=== PATIENT | female | born 1930 | race African-American/Black ===

== ENCOUNTER 2016-10-10 20:17 | Observation (INO) | payer OTHER ==
[~2016-10-10] VITALS: Ht 152.4 cm; Wt 77.0 kg
[~2016-10-10 20:17] MED LIST: ALBU6.7H INH; AMIO200 PO; AMLO5 PO; APIX5 PO; FURO1TAB93 PO; LISI-363 PO; MILKSUS5 PO; MOTI25CH PO; MULT-65 PO; OMEP20TA39 PO; PRAV20 PO; VITA200017 PO
[2016-10-10 20:19] VITALS: BP 165/81; PULSE 110; RESP 18; TEMP 98; O2SAT 98
[2016-10-10 20:41] VITALS: BP 191/81; PULSE 97; RESP 16; O2SAT 97
[2016-10-10] MEDS ORDERED: OCUVTAB PO (20:49)
[2016-10-10] MEDS ORDERED: OMEP20TA PO (20:49)
[2016-10-10] MEDS ORDERED: LISI-515 PO (20:49)
[2016-10-10] MEDS ORDERED: AMLO5TAB2 PO (20:49)
[2016-10-10] MEDS ORDERED: FURO40TA PO (20:49)
[2016-10-10] MEDS ORDERED: MECL-62 PO (20:49)
[2016-10-10] MEDS ORDERED: PRAV40TA2 PO (20:49)
[2016-10-10] MEDS ORDERED: CHOL20003 PO (20:49)
[2016-10-10] MEDS ORDERED: APIX5TAB PO (20:49)
[2016-10-10] MEDS ORDERED: SODIUM CHLORIDE 0.9% FLUSH 5 ML FLUSH IVF PRN ×2 (21:00→22:45)
--- NOTE | 2016-10-10 21:29 | RADRPT ---
EXAM DATE/TIME: 10/10/2016 20:44 [place] COMPARISON: CHEST SINGLE AP, October 14, 2014, 5:12. INDICATIONS : Chest pain, shortness of breath and abnormal heart rate. MEDICAL HISTORY : Atrial fibrillation. SURGICAL HISTORY : None. ENCOUNTER: Initial ACUITY: 1 day PAIN SCORE: 3/10 LOCATION: Bilateral chest FINDINGS: A single view of the chest demonstrates the lungs to be symmetrically aerated without evidence of mas s, infiltrate or effusion. Minimal basilar atelectasis. The cardiomediastinal contours are unremarkab le. Osseous structures are intact. CONCLUSION: 1. Minimal basilar atelectasis. Tortuous aorta. Jorge Luis Barker MD on October 10, 2016 at 21:27 Board Certified Radiologist. This report was verified electronically.
[2016-10-10 21:39] VITALS: BP 169/75
--- NOTE | 2016-10-10 21:42 | PD ---
HPI Chief Complaint: Cardiac Complaint Time Seen by Provider: 21:32 Travel History International Travel<30 days: No Contact w/Intl Traveler<30days: No Traveled to known affect area: No History of Present Illness HPI 86 yo female that presents that present to the ed for evaluation of palpitations and chest pain. This started today around 5 pm. Per patient she also feels short of breath. No chest pain now, but she had it when it first started but went away 1 hour later. She has a history of a. fib and sees Dr Martínez. No history of stents or heart surgery. takes Eliquis. no abdominal pain. shortness of breath is moderate. nothing makes symptoms better or worst. Per patient her palpitations seem to improve. She is compliant with meds. No falls, injury or recent travel. no allergies to meds. she has a history of hypertension and high cholesterol. Per patient the chest pain feels new and she 's never had it before. She has had the palpitations and shortness of breath before with no issues. She denies any dizziness or lightheadedness. No headache. No bleeding. What concerned her the most is to the symptoms did not go away. She cannot really tell me when was her last stress test. PFSH Past Medical History Arthritis: Yes ("ALL OVER") Blood Disorders: No Heart Rhythm Problems: Yes (A FIB) Cancer: No Cardiovascular Problems: Yes High Cholesterol: Yes (TAKES MEDS) Chemotherapy: No Chest Pain: Yes Congestive Heart Failure: No Diabetes: No Diverticulitis: Yes Endocrine: No Gastrointestinal Disorders: Yes GERD: No Genitourinary: No Hepatitis: No Hiatal Hernia: Yes Hypertension: Yes Immune Disorder: No Musculoskeletal: Yes Neurologic: No Psychiatric: No Reproductive: No Respiratory: Yes Myocardial Infarction: No Radiation Therapy: No Ulcer: No Past Surgical History Abdominal Surgery: Yes (HYSTERECTOMY) AICD: No Appendectomy: No Arteriovenous Shunt: No Cardiac Surgery: No Cholecystectomy: Yes Coronary Artery Bypass Graft: No Ear Surgery: No Endocrine Surgery: No Eye Surgery: Yes (CATARACTS LEFT EYE 2010) Genitourinary Surgery: No Gynecologic Surgery: Yes (HYSTERECTOMY) Hysterectomy: Yes Insulin Pump: No Joint Replacement: Yes (RIGHT HIP REPLACEMENT 2001) Oral Surgery: No Pacemaker: No Thoracic Surgery: Yes Other Surgery: Yes Social History Alcohol Use: No Tobacco Use: No Substance Use: No Allergies-Medications (Allergen,Severity, Reaction): Coded Allergies: No Known Allergies (Verified , 10/10/16) Reported Meds & Prescriptions Reported Meds & Active Scripts Active Eliquis5 M1 5 Mg Tab 5 Mg PO BID Norvasc (Amlodipine Besylate) 5 Mg Tab 5 Mg PO DAILY Cordarone 200 Mg Tab (Amiodarone HCl) 200 Mg Tab 200 Mg PO DAILY Start taking after the amiodarone 200 mg twice a day has been completed Cordarone 200 Mg Tab (Amiodarone HCl) 200 Mg Tab 200 Mg PO BID Reported D3 (Cholecalciferol) 2,000 Unit Cap Ocuvite (Multiple Vitamins W/ Minerals) 1 Tab 1 Tab PO DAILY Meclizine (Meclizine HCl) 25 Mg Tab 25 Mg PO DIRECTED PRN Furosemide 40 Mg Tab 40 Mg PO DAILY Omeprazole 20 Mg Tab 20 Mg PO DAILY Amlodipine (Amlodipine Besylate) 5 Mg Tab 5 Mg PO DAILY Lisinopril 20 Mg Tab 20 Mg PO BID Pravastatin 40 Mg Tab 40 Mg PO DAILY Eliquis (Apixaban) 5 Mg Tab 5 Mg PO BID Meclizine Hcl (Meclizine HCl) 25 Mg Tab 25 Mg PO BID PRN Lisinopril 20 mg (Lisinopril) 20 Mg Tab 1 Tab PO DAILY Furosemide 40 Mg Tab 40 Mg PO DAILY Multi-Vitamin Daily (Multivitamins) Daily Tab 1 Tab PO DAILY Vitamin D3 Super Strength (Cholecalciferol) 2,000 Unit Tab 2,000 Unit PO DAILY Hm Omeprazole (Omeprazole) 20 Mg Tab 20 Mg PO DAILY Pravastatin Sodium 20 Mg Tab 2 Tab PO HS Milk Of Magnesi1 30 Ml Susp 0 PO UNKNOWN DOSE Proventil Hfa (Albuterol Sulfate) 6.7 Gm Aero 0 INH UNKNOWN DOSE Review of Systems General / Constitutional: No: Fever, Chills, Weight Gain, Weight Loss, Other Eyes: No: Diploplia, Blurred Vision, Photophobia, Drainage, Redness, Foreign Body Sensation, Pain, Tearing, Blind Spots, Visual changes, Blindness, Other HENT: No: Headaches, Vertigo, Lightheadedness, Sore Throat, Rhinitis, Rhinorrhea, Congestion, Nosebleed, Neck Stiffness, Neck Pain, Masses, Gingival Bleeding, Dental Difficulties, Ear Discharge, Earache, Other Cardiovascular: Positive: Chest Pain or Discomfort, Palpitations, Irregular Rhythm, Tachycardia, No: Diaphoresis, Syncope, Dyspnea on exertion, Varicosities, Edema, Cyanosis, Varicosities, Phlebitis, Claudication, Other Respiratory: Positive: Shortness of Breath, No: Cough, Wheezing, Sneezing, Orthopnea, Hemoptysis, Stridor, Night Sweats, Pleuritic Pain, Other Gastrointestinal: No: Nausea, Vomiting, Diarrhea, Abdominal Pain, Hematemesis, Hematochezia, Constipation, Changes in Bowel Habits, Indigestion, Dysphagia, Loss of Appetite, Other Genitourinary: No: Urgency, Frequency, Dysuria, Nocturia, Hematuria, Decreased Urinary Output, Oliguria, Hesitancy, Dribbling, Incontinence, Pelvic Pain, Flank Pain, Dyspareunia, Discharge, Dysmenorrhea, Menorrhagia, Metorrhagia, Vaginal Bleeding, Other Musculoskeletal: No: Myalgias, Arthralgias, Limited ROM, Weakness, Cramping, Edema, Pain, Atrophy, Other Skin: No Rash, No Itching, No Dryness, No Lumps, No Hives, No Change in Pigmentation, No Change in nails, No Alopecia, No Lesions, No Breast Lumps, No Breast Tenderness, No Breast Swelling, No Other Neurologic: No: Weakness, Dizziness, Syncope, Focal Abnormalities, Coordination Problem, Tremor, Ataxia, Headache, Change in Mentation, Slurred Speech, Paresthesia, Incontinence, Seizures, Sensory Disturbance, Other Psychiatric: No: Anxiety, Depression, Suicidal Ideations, Disorder of Thought, Mood Disorder, Substance Abuse, Homicidal Ideation, Other Endocrine: No: Heat Intolerance, Cold Intolerance, Polyuria, Polydipsia, Other Hematologic/Lymphatic: No: Easy Bruising, Lymph Node Enlargement, Other Physical Exam Narrative GENERAL: SKIN: Warm and dry. HEAD: Atraumatic. Normocephalic. EYES: Pupils equal and round. No scleral icterus. No injection or drainage. ENT: No nasal bleeding or discharge. Mucous membranes pink and moist. Tongue is midline. no uvula deviation. NECK: Trachea midline. No JVD. CARDIOVASCULAR: Regular rate and rhythm. No murmurs, S3, S4 RESPIRATORY: No accessory muscle use. Clear to auscultation. Breath sounds equal bilaterally. GASTROINTESTINAL: Abdomen soft, non-tender, nondistended. Hepatic and splenic margins not palpable. MUSCULOSKELETAL: Extremities without clubbing, cyanosis, or edema. No obvious deformities. Full ROM of the upper and lower extremities bilaterally. 2+ pulses bilaterally. NEUROLOGICAL: Awake and alert. No obvious cranial nerve deficits. Motor grossly within normal limits. Five out of 5 muscle strength in the arms and legs. Normal speech. PSYCHIATRIC: Appropriate mood and affect; insight and judgment normal. Data Data Last Documented VS Vital Signs Date Time Temp Pulse Resp B/P Pulse Ox O2 Delivery O2 Flow Rate FiO2 10/10/16 21:40 98 Room Air 10/10/16 21:39 169/75 10/10/16 20:41 97 16 10/10/16 20:19 98.0 Orders Electrocardiogram (10/10/16 20:46) Basic Metabolic Panel (Bmp) (10/10/16 20:46) Ckmb (Isoenzyme) Profile (10/10/16 20:46) Complete Blood Count With Diff (10/10/16 20:46) Magnesium (Mg) (10/10/16 20:46) Prothrombin Time / Inr (Pt) (10/10/16 20:46) Act Partial Throm Time (Ptt) (10/10/16 20:46) Troponin I (10/10/16 20:46) Chest, Single Ap (10/10/16 20:46) Ecg Monitoring (10/10/16 20:46) Bilateral Bp Monitoring (10/10/16 20:46) Iv Access Insert/Monitor (10/10/16 20:46) Oximetry (10/10/16 20:46) Oxygen Administration (10/10/16 20:46) Sodium Chloride 0.9% Flush (Ns Flush) (10/10/16 21:00) CKMB (10/10/16 21:20) CKMB% (10/10/16 21:20) Admit Order (Ed Use Only) (10/10/16 22:39) Activity Bed Rest With Brp (10/10/16 22:39) Vital Signs (Adult) Q4H (10/10/16 22:39) Cardiac Rhythm .As Directed (10/10/16 22:39) ^ Notify Dr: Other .PRN (10/10/16 22:39) ^ Notify Dr. Parameters (10/10/16 22:39) Resp Oxygen Nasal Cannula (10/10/16 ) Ckmb (Isoenzyme) Profile (10/11/16 00:20) Ckmb (Isoenzyme) Profile (10/11/16 03:20) Troponin I (10/11/16 00:20) Troponin I (10/11/16 03:20) Electrocardiogram (10/11/16 00:20) Electrocardiogram (10/11/16 03:20) ^ Obtain (10/10/16 22:39) Sodium Chloride 0.9% Flush (Ns Flush) (10/10/16 22:45) Sodium Chloride 0.9% Flush (Ns Flush) (10/11/16 09:00) Acetaminophen (Tylenol) (10/10/16 22:45) Acetamin-Hydrocod 325-7.5 Mg ([place] 7.5 (10/10/16 22:45) [place]eter Operator / Telemetry ONOFRE.Q8H (10/10/16 22:39) Labs Laboratory Tests Test 10/10/16 21:20 White Blood Count 6.3 TH/MM3 Red Blood Count 4.05 MIL/MM3 Hemoglobin 12.4 GM/DL Hematocrit 37.2 % Mean Corpuscular Volume 91.6 FL Mean Corpuscular Hemoglobin 30.6 PG Mean Corpuscular Hemoglobin 33.4 % Concent Red Cell Distribution Width 14.4 % Platelet Count 315 TH/MM3 Mean Platelet Volume 7.1 FL Neutrophils (%) (Auto) 40.7 % Lymphocytes (%) (Auto) 44.9 % Monocytes (%) (Auto) 8.4 % Eosinophils (%) (Auto) 5.1 % Basophils (%) (Auto) 0.9 % Neutrophils # (Auto) 2.6 TH/MM3 Lymphocytes # (Auto) 2.8 TH/MM3 Monocytes # (Auto) 0.5 TH/MM3 Eosinophils # (Auto) 0.3 TH/MM3 Basophils # (Auto) 0.1 TH/MM3 CBC Comment DIFF FINAL Differential Comment Prothrombin Time 11.7 SEC Prothromb Time International 1.1 RATIO Ratio Activated Partial 27.3 SEC Thromboplast Time Sodium Level 142 MEQ/L Potassium Level 3.6 MEQ/L Chloride Level 108 MEQ/L Carbon Dioxide Level 27.8 MEQ/L Anion Gap 6 MEQ/L Blood Urea Nitrogen 20 MG/DL Creatinine 0.82 MG/DL Estimat Glomerular Filtration 80 ML/MIN Rate Random Glucose 104 MG/DL Calcium Level 8.7 MG/DL Magnesium Level 2.3 MG/DL Total Creatine Kinase 102 U/L Creatine Kinase MB 1.2 NG/ML Troponin I LESS THAN 0.02 NG/ML MDM Medical Decision Making Medical Screen Exam Complete: Yes Emergency Medical Condition: Yes Medical Record Reviewed: Yes Interpretation(s) CBC & BMP Diagram 10/10/16 21:20 EKG shows sinus rhythm with no sign of acute arrythmia or ischemia. troponin and CKMB negative Last Impressions Chest X-Ray 10/10/162045 Signed Impressions: Service Date/Time: Monday, October 10, 2016 20:44 - CONCLUSION: 1. Minimal basilar atelectasis. Tortuous aorta. Jorge Luis Barker MD Differential Diagnosis chest pain vs ACS vs a. fib vs atypical chest pain vs pneumonia vs SOB Narrative Course 86-year-old female that presents to the ED for evaluation of chest pain and palpitations. Patient was properly examined and was found to have signs and symptoms consistent with appears to be resolved A. fib. My initial examination patient is having sinus rhythm. Her heart rate here is already in the 70s and 80s with no sign of atrial fibrillation. Patient chest pain has resolved. Patient does feel somewhat short of breath but feels improved. Labs and imaging were done to any sign of acute disease. Labs and imaging were essentially unremarkable. Troponin was negative. Chest x-ray was negative. Patient does have risk factors including high cholesterol and hypertension as well as age. Case was discussed in my attending who evaluated the patient and recommends admission to the chest pain center. This was discussed with the patient who agrees to admission. Patient was admitted to the chest pain center. Diagnosis Primary Impression: Chest pain in adult Admitting Information Admitting Physician Requests: Observation Reginald Robledo Oct 10, 2016 21:42
[2016-10-10 21:52] LABS: AUTOMATED NEUTROPHIL # 2.6 TH/MM3 (1.8-7.7); BASOPHIL # 0.1 TH/MM3 (0-0.2); BASOPHIL % 0.9 % (0.0-2.0); EOSINOPHIL # 0.3 TH/MM3 (0-0.4); EOSINOPHIL % 5.1 % (0.0-4.0); HEMATOCRIT 37.2 % (35.0-46.0); HEMO FLAGS DIFF FINAL; LYMPH % 44.9 % (9.0-44.0); LYMPHOCYTE # 2.8 TH/MM3 (1.0-4.8); MEAN CELL VOLUME 91.6 FL (80.0-100.0); MEAN CORPUSCULAR HEMOGLOBIN 30.6 PG (27.0-34.0); MEAN CORPUSCULAR HGB CONC 33.4 % (32.0-36.0); MONO % 8.4 % (0.0-8.0); NEUT % 40.7 % (16.0-70.0); PLATELET COUNT 315 TH/MM3 (150-450); RED BLOOD COUNT 4.05 MIL/MM3 (4.00-5.30); RED CELL DISTRIBUTION WIDTH 14.4 % (11.6-17.2); WHITE BLOOD COUNT 6.3 TH/MM3 (4.0-11.0)
[2016-10-10 22:02] LABS: APTT (PATIENT) 27.3 SEC (24.3-30.1); INTERNATIONAL NORMALIZED RATIO 1.1 RATIO; PROTHROMBIN TIME - PATIENT 11.7 SEC (9.8-11.6)
[2016-10-10 22:12] LABS: ANION GAP 6 MEQ/L (5-15); BICARBONATE 27.8 MEQ/L (21.0-32.0); BLOOD UREA NITROGEN 20 MG/DL (7-18); CHLORIDE 108 MEQ/L (98-107); GLOMERULAR FILTRATION RATE 80 ML/MIN (>89); MAGNESIUM 2.3 MG/DL (1.5-2.5); POTASSIUM 3.6 MEQ/L (3.5-5.1); SODIUM (NA) 142 MEQ/L (136-145)
[2016-10-10 22:16] LABS: CREATINE KINASE 102 U/L (26-192)
[2016-10-10 22:28] LABS: CKMB 1.2 NG/ML (0.5-3.6)
[2016-10-10] MEDS ORDERED: ACETAMINOPHEN/HYDROcodone 325 MG/7.5 MG TAB PO PRN (22:45)
[2016-10-10] MEDS ORDERED: ACETAMINOPHEN 500 MG CPLT PO PRN (22:45)
--- NOTE | 2016-10-10 22:54 | PD ---
Physical Exam Narrative General: The patient is a well-developed well-nourished female in no acute distress. Head and Neck exam: Head is normocephalic atraumatic. Eyes: Pupils are equal round and reactive to light. Nose: Midline septum with pink mucous membranes Mouth: Dentition unremarkable. Moist mucus membranes. Posterior oropharynx is not erythematous. No tonsillar hypertrophy. Uvula midline. Airway patent. Neck: No palpable lymphadenopathy. No nuchal rigidity. No thyromegaly. Cardiovascular: Regular rate and rhythm without murmurs, gallops, or rubs. Lungs: Clear to auscultation bilaterally. No wheezes, rhonchi, or rales. Abdomen: Soft, without tenderness to palpation in all 4 quadrants of the abdomen. No guarding, rebound, or rigidity. Normal bowel sounds are audible. Extremities: No clubbing, cyanosis, or edema. 2+ pulses in bilateral upper extremities. Neurologic Exam: Grossly nonfocal. Skin Exam: No rash noted. Intact skin that is warm and dry. Data Data Last Documented VS Vital Signs Date Time Temp Pulse Resp B/P Pulse Ox O2 Delivery O2 Flow Rate FiO2 10/10/16 21:40 98 Room Air 10/10/16 21:39 169/75 10/10/16 20:41 97 16 10/10/16 20:19 98.0 Orders Electrocardiogram (10/10/16 20:46) Basic Metabolic Panel (Bmp) (10/10/16 20:46) Ckmb (Isoenzyme) Profile (10/10/16 20:46) Complete Blood Count With Diff (10/10/16 20:46) Magnesium (Mg) (10/10/16 20:46) Prothrombin Time / Inr (Pt) (10/10/16 20:46) Act Partial Throm Time (Ptt) (10/10/16 20:46) Troponin I (10/10/16 20:46) Chest, Single Ap (10/10/16 20:46) Ecg Monitoring (10/10/16 20:46) Bilateral Bp Monitoring (10/10/16 20:46) Iv Access Insert/Monitor (10/10/16 20:46) Oximetry (10/10/16 20:46) Oxygen Administration (10/10/16 20:46) Sodium Chloride 0.9% Flush (Ns Flush) (10/10/16 21:00) CKMB (10/10/16 21:20) CKMB% (10/10/16 21:20) Admit Order (Ed Use Only) (10/10/16 22:39) Activity Bed Rest With Brp (10/10/16 22:39) Vital Signs (Adult) Q4H (10/10/16 22:39) Cardiac Rhythm .As Directed (10/10/16 22:39) ^ Notify Dr: Other .PRN (10/10/16 22:39) ^ Notify Dr. Parameters (10/10/16 22:39) Resp Oxygen Nasal Cannula (10/10/16 ) Ckmb (Isoenzyme) Profile (10/11/16 00:20) Ckmb (Isoenzyme) Profile (10/11/16 03:20) Troponin I (10/11/16 00:20) Troponin I (10/11/16 03:20) Electrocardiogram (10/11/16 00:20) Electrocardiogram (10/11/16 03:20) ^ Obtain (10/10/16 22:39) Sodium Chloride 0.9% Flush (Ns Flush) (10/10/16 22:45) Sodium Chloride 0.9% Flush (Ns Flush) (10/11/16 09:00) Acetaminophen (Tylenol) (10/10/16 22:45) Acetamin-Hydrocod 325-7.5 Mg ([place] 7.5 (10/10/16 22:45) Street Supervisor / Telemetry ONOFRE.Q8H (10/10/16 22:39) Labs Laboratory Tests Test 10/10/16 21:20 White Blood Count 6.3 TH/MM3 Red Blood Count 4.05 MIL/MM3 Hemoglobin 12.4 GM/DL Hematocrit 37.2 % Mean Corpuscular Volume 91.6 FL Mean Corpuscular Hemoglobin 30.6 PG Mean Corpuscular Hemoglobin 33.4 % Concent Red Cell Distribution Width 14.4 % Platelet Count 315 TH/MM3 Mean Platelet Volume 7.1 FL Neutrophils (%) (Auto) 40.7 % Lymphocytes (%) (Auto) 44.9 % Monocytes (%) (Auto) 8.4 % Eosinophils (%) (Auto) 5.1 % Basophils (%) (Auto) 0.9 % Neutrophils # (Auto) 2.6 TH/MM3 Lymphocytes # (Auto) 2.8 TH/MM3 Monocytes # (Auto) 0.5 TH/MM3 Eosinophils # (Auto) 0.3 TH/MM3 Basophils # (Auto) 0.1 TH/MM3 CBC Comment DIFF FINAL Differential Comment Prothrombin Time 11.7 SEC Prothromb Time International 1.1 RATIO Ratio Activated Partial 27.3 SEC Thromboplast Time Sodium Level 142 MEQ/L Potassium Level 3.6 MEQ/L Chloride Level 108 MEQ/L Carbon Dioxide Level 27.8 MEQ/L Anion Gap 6 MEQ/L Blood Urea Nitrogen 20 MG/DL Creatinine 0.82 MG/DL Estimat Glomerular Filtration 80 ML/MIN Rate Random Glucose 104 MG/DL Calcium Level 8.7 MG/DL Magnesium Level 2.3 MG/DL Total Creatine Kinase 102 U/L Creatine Kinase MB 1.2 NG/ML Troponin I LESS THAN 0.02 NG/ML [facility] Medical Record Reviewed: Yes Supervised Visit with TIFFANIE: Yes Interpretation(s) Last Impressions Chest X-Ray 10/10/162045 Signed Impressions: Service Date/Time: Monday, October 10, 2016 20:44 - CONCLUSION: 1. Minimal basilar atelectasis. Tortuous aorta. Jorge Luis Barker MD Laboratory Tests Test 10/10/16 21:20 Lymphocytes (%) (Auto) 44.9 % (9.0-44.0) Monocytes (%) (Auto) 8.4 % (0.0-8.0) Eosinophils (%) (Auto) 5.1 % (0.0-4.0) Prothrombin Time 11.7 SEC (9.8-11.6) Chloride Level 108 MEQ/L (98-107) Blood Urea Nitrogen 20 MG/DL (7-18) Estimat Glomerular Filtration 80 ML/MIN (>89) Rate Troponin I LESS THAN 0.02 NG/ML (0.02-0.05) Narrative Course I, Dr. Clark, have reviewed the advance practice practitioner's documentation and am in agreement, met with the patient face to face, made the diagnosis, and the medical decision making was done by me. The patient was initially seen by George, the physician pastoral assistant. Please see his complete history and physical. *My assessment and Findings: The patient is an 86-year-old female who presents to [facility] emergency Department with a history of shortness of breath and palpitations that began earlier today. She reports that she also had an episode of central chest pain that resolved on its own. She denies ever having chest pain like this previously. She reports that she does have a history of atrial fibrillation and is anticoagulated on Eliquis. The patient's examination was unremarkable, the patient reports that her symptoms have improved and she is resting comfortably. The patient's laboratory studies were remarkable for a white count of 6.3, hemoglobin 12.4, platelets 3:15 with 44.9 lymphocytes, BNP remarkable for chloride of 108, BUN 20, GFR of 80, CPK 102, troponin I less than 0.02, PT 11.7, INR 1.1, PTT 27.3, chest x-ray shows a tortuous aorta, minimal Basilar atelectasis. No other acute abnormality. The patient was agreeable with the plan to proceed with admission to the chest pain center for rule out serial cardiac enzyme protocol and consideration of stress testing. The patients results were discussed with the patient, including the plan of care. I explained that further testing and/ or monitoring is indicated based on the patients history, examination, and/ or laboratory findings. Therefore, I recommended admission for additional evaluation. The patient expressed understanding and was agreeable with this plan. The patient was admitted to the hospital in stable condition and sent to a bed under the care of chest pain center. Diagnosis Primary Impression: Chest pain in adult Additional Impression: History of atrial fibrillation Admitting Information Admitting Physician Requests: Shelly Salazar MD Oct 10, 2016 22:53
[2016-10-11 01:22] LABS: CREATINE KINASE 90 U/L (26-192)
[2016-10-11 01:30] VITALS: BP 159/69; PULSE 71; RESP 16; O2SAT 98
[2016-10-11 04:09] VITALS: PULSE 70
[2016-10-11 04:53] LABS: CREATINE KINASE 97 U/L (26-192)
[2016-10-11 08:00] VITALS: BP 180/69; PULSE 72; PULSE 74; RESP 18; TEMP 96.5; O2SAT 98
[2016-10-11] MEDS ORDERED: SODIUM CHLORIDE 0.9% FLUSH 5 ML FLUSH IVF SCH (09:00)
[2016-10-11] MEDS ORDERED: METO50TA11 PO (10:07)
[2016-10-11] MEDS ORDERED: REGADENOSON INJ 0.4 MG/5 ML SYR ONE (10:14)
--- NOTE | 2016-10-11 10:18 | HHI.HP ---
[facility] Primary Care Physician Ana Diggs MD Chief Complaint Chest pain and palpitations History of Present Illness This is a 86-year-old female that presents to the ED complaining of having palpitations that began yesterday afternoon around 1:30. She states that it felt similar to her A. fib. He has had paroxysmal atrial fibrillation for many years. She also states that she developed a sharp left-sided chest discomfort that lasted less than 2 minutes while she is on her way to the ER to evaluate her palpitations she states that she really has not had sensation since being in the hospital. He has been in sinus rhythm since being in the hospital when looking at the telemetry. Denies recent illness. Denies fevers or chills. Upon reviewing records, patient had a nonischemic Lexiscan September 2014. She states that she follows Dr. Martínez. Review of Systems General: Patient denies fevers, chills recent, and recent travel HEENT: Patient denies headache, sore throat, difficulty swallowing. Cardiovascular: Has the chest discomfort as mentioned above. Has the sensation of heart beating rapidly and irregularly. No syncope. No diaphoresis. Respiratory: Denies shortness of breath or inspirational chest discomfort. Denies coughing wheezing or hemoptysis. GI: Patient denies nausea, vomiting, diarrhea, abdominal pain, bloody stools. Musculoskeletal: Patient denies joint pain or edema. Denies calf pain or edema. Neurovascular: Patient denies numbness, tingling, weakness in extremities. Denies headache. Endocrine: Denies polyuria and polydipsia. Hematologic: Denies easy bruising. Skin: Denies rash or itching. Past Family Social History Allergies: Coded Allergies: No Known Allergies (Verified , 10/10/16) Past Medical History Paroxysmal atrial ablation, hypertension, hyperlipidemia, and rheumatoid arthritis. Denies diabetes and known coronary artery disease. Past Surgical History Hysterectomy, right hip replacement, cholecystectomy, cataracts. Reported Medications Reported Meds & Active Scripts Active Reported Metoprolol Succinate ER 24 HR (Metoprolol Succinate) 50 Mg Tab 25 Mg PO DAILY D3 (Cholecalciferol) 2,000 Unit Cap 2,000 Units PO DAILY Ocuvite (Multiple Vitamins W/ Minerals) 1 Tab 1 Tab PO DAILY Meclizine (Meclizine HCl) 25 Mg Tab 25 Mg PO DIRECTED PRN Furosemide 40 Mg Tab 40 Mg PO DAILY Omeprazole 20 Mg Tab 20 Mg PO DAILY Amlodipine (Amlodipine Besylate) 5 Mg Tab 5 Mg PO DAILY Lisinopril 20 Mg Tab 20 Mg PO BID Pravastatin 40 Mg Tab 40 Mg PO DAILY Eliquis (Apixaban) 5 Mg Tab 5 Mg PO BID Active Ordered Medications Current Medications Medications (Trade) Dose Ordered Sig/Sanjuanita Route Start Time Stop Time Status Last Admin (NS Flush) 2 ml UNSCH PRN IVF 10/10/16 21:00 (NS Flush) 2 ml UNSCH PRN IVF 10/10/16 22:45 (NS Flush) 2 ml BID IVF 10/11/16 09:00 (Tylenol) 500 mg Q4H PRN PO 10/10/16 22:45 ([place] 7.5-325 Mg) 1 tab Q4H PRN PO 10/10/16 22:45 Family History Denies knowledge of family history of CAD. Social History Patient does not smoke, drink alcohol, or use illicit drugs. Physical Exam Vital Signs Vital Signs Date Time Temp Pulse Resp B/P Pulse Ox O2 Delivery O2 Flow Rate FiO2 10/11/16 08:00 96.5 72 18 180/69 98 10/11/16 04:09 70 10/11/16 01:30 71 16 159/69 98 10/10/16 21:40 98 Room Air 10/10/16 21:39 169/75 10/10/16 20:41 97 16 191/81 97 Room Air 10/10/16 20:19 98.0 110 18 165/81 98 Room Air Physical Exam GENERAL: This is a well-nourished, well-developed patient, in no apparent distress. Patient speaks in clear complete sentences. Patient is pleasant. HEENT: Head is atraumatic and normocephalic. Neck is supple without lymphadenopathy and trachea is midline. No JVD or carotid bruits. CARDIOVASCULAR: Regular rate and rhythm without murmurs, gallops, or rubs. RESPIRATORY: Clear to auscultation. Breath sounds equal bilaterally. No wheezes , rales, or rhonchi. Chest wall is nontender. No use of accessory muscles. GASTROINTESTINAL: Abdomen is nontender, nondistended. Abdomen soft. No obvious pulsatile mass or bruit. No CVA tenderness. Strong femoral pulses bilaterally. Normal bowel sounds in all quadrants. MUSCULOSKELETAL: Patient is moving upper and lower extremities freely. No calf tenderness or edema, no Homans sign. Strong pulses in upper and lower extremities. NEUROLOGICAL: Patient is alert and oriented. Cranial nerves 2-12 are grossly intact. No focal deficits and speech is clear. SKIN: No rash and turgor is normal. Laboratory Laboratory Tests Test 10/10/16 10/11/16 10/11/16 21:20 00:20 03:59 White Blood Count 6.3 Red Blood Count 4.05 Hemoglobin 12.4 Hematocrit 37.2 Mean Corpuscular Volume 91.6 Mean Corpuscular Hemoglobin 30.6 Mean Corpuscular Hemoglobin 33.4 Concent Red Cell Distribution Width 14.4 Platelet Count 315 Mean Platelet Volume 7.1 Neutrophils (%) (Auto) 40.7 Lymphocytes (%) (Auto) 44.9 Monocytes (%) (Auto) 8.4 Eosinophils (%) (Auto) 5.1 Basophils (%) (Auto) 0.9 Neutrophils # (Auto) 2.6 Lymphocytes # (Auto) 2.8 Monocytes # (Auto) 0.5 Eosinophils # (Auto) 0.3 Basophils # (Auto) 0.1 CBC Comment DIFF FINAL Differential Comment Prothrombin Time 11.7 Prothromb Time International 1.1 Ratio Activated Partial 27.3 Thromboplast Time Sodium Level 142 Potassium Level 3.6 Chloride Level 108 Carbon Dioxide Level 27.8 Anion Gap 6 Blood Urea Nitrogen 20 Creatinine 0.82 Estimat Glomerular Filtration 80 Rate Random Glucose 104 Calcium Level 8.7 Magnesium Level 2.3 Total Creatine Kinase 102 90 97 Creatine Kinase MB 1.2 Troponin I LESS THAN 0.02 LESS THAN 0.02 LESS THAN 0.02 Result Diagram: 10/10/16211910/10/162119 Imaging Last Impressions Chest X-Ray 10/10/162045 Signed Impressions: Service Date/Time: Monday, October 10, 2016 20:44 - CONCLUSION: 1. Minimal basilar atelectasis. Tortuous aorta. Jorge Luis Barker MD Course EKG is sinus rhythm without significant ST segment depression or elevation. Assessment and Plan Assessment and Plan * Chest pain: Patient's discomfort is atypical. She however has a sensation of heart beating irregularly and thought she was in atrial for ablation. She has history of paroxysmal atrial ablation. He has been seen by Dr. Willie Hernandez of cardiology and the chest pain center. Patient had serial EKGs and cardiac enzymes and has ruled out. I discussed this patient with Dr. Martínez. 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 * Paroxysmal atrial ablation: Will continue to have patient monitor on telemetry. She has been sinus rhythm since being in the hospital. Continue her current medications. * Hypertension: Continue current medication. * Hyperlipidemia: Continue current medications. Patient is stable at this time. She is agreeable to this plan. Miles Little Oct 11, 2016 10:18
[2016-10-11] MEDS ORDERED: FUROSEMIDE 40 MG TAB PO SCH (10:30)
[2016-10-11] MEDS ORDERED: PANTOPRAZOLE SOD 20 MG DELAYED RELEASE TAB PO SCH (10:30)
[2016-10-11] MEDS ORDERED: PRAVASTATIN SOD 40 MG TAB PO SCH (10:30)
[2016-10-11] MEDS ORDERED: METOPROLOL SUCCINATE 25 MG EXTENDED RELEASE TAB PO SCH (10:30)
[2016-10-11] MEDS ORDERED: APIXABAN 5 MG TABLET PO SCH (10:30)
[2016-10-11] MEDS ORDERED: amLODIPine BESYLATE 5 MG TAB PO SCH (10:30)
[2016-10-11] MEDS ORDERED: LISINOPRIL 20 MG TAB PO SCH (10:30)
[2016-10-11] MEDS ORDERED: MECLIZINE HCL 25 MG TAB PO PRN (10:30)
--- NOTE | 2016-10-11 11:34 | RADRPT ---
EXAM DATE/TIME: 10/11/2016 09:38 [facility] COMPARISON: MYOCARDIAL PERF PHARM SPECT, GATED W/EF, October 14, 2014, 13:09. INDICATIONS : Chest pain with palpitations for 1 day. Angina. Atrial fibrillation. DOSE: 25.8 mCi Tc99m Myoview at stress. 8.6 mCi Tc99m Myoview at rest. 0.4 mg Lexiscan STRESS SYMPTOMS: None. EJECTION FRACTION: > 70% MEDICAL HISTORY : Hypertension. Hypercholesterolemia. SURGICAL HISTORY : Hysterectomy. Inguinal hernia repair. ENCOUNTER: Initial ACUITY: 1 day PAIN SCALE: 3/10 LOCATION: Bilateral chest TECHNIQUE: The patient underwent pharmacologic stress with infusion of prescribed dose. Continuous ECG tracing was monitored during stress. Gated SPECT imaging was performed after stress and conventional SPECT i maging was performed at rest. The examination was performed on a SPECT/CT scanner, both attenuation and non-corrected datasets were reviewed. FINDINGS: DISTRIBUTION: The maximum perfused segment at stress is in the anterior wall. PERFUSION STUDY: The pattern of perfusion at stress is within normal limits. GATED STUDY: There is intact wall motion and thickening without hypokinetic or dyskinetic segments. CONCLUSION: 1. No fixed or reversible wall defects to suggest ischemia or infarction. 2. Normal wall motion and calculated ejection fraction. RISK CATEGORY: Low (<1% Annual Mortality Rate) Justin Muller MD on October 11, 2016 at 11:31 Board Certified Radiologist. This report was verified electronically.
[2016-10-11 12:45] VITALS: BP 165/84; PULSE 92; RESP 18; O2SAT 96
--- NOTE | 2016-10-11 12:56 | HHI.DCPOC ---
Discharge Care Plan Diagnosis: (1) Chest pain (2) History of atrial fibrillation (3) Hypertension (4) Hyperlipidemia Goals to Promote Your Health * To prevent worsening of your condition and complications * To maintain your health at the optimal level Directions to Meet Your Goals Take your medications as prescribed Follow your dietary instruction Follow activity as directed Keep your appointments as scheduled Take your immunizations and boosters as scheduled If your symptoms worsen call your PCP, if no PCP go to Urgent Care Center or Emergency Room Smoking is Dangerous to Your Health. Avoid second hand smoke Call the 24-hour hour crisis hotline for domestic abuse at Miles Little Oct 11, 2016 12:56
--- NOTE | 2016-10-11 15:40 | EKG ---
Date Performed: 10/11/2016 Time Performed: 03:44:34 PTAGE: 86 years EKG: Sinus rhythm SEPTAL MYOCARDIAL INFARCTION ABNORMAL ECG PREVIOUS TRACING : 10/11/2016 00.13 Since previous tracing, no significant change noted DOCTOR: Willie Hernandez Interpretating Date/Time 10/11/2016 15:39:46
--- NOTE | 2016-10-11 15:41 | EKG ---
Date Performed: 10/10/2016 Time Performed: 21:35:22 PTAGE: 86 years EKG: Sinus rhythm NORMAL ECG PREVIOUS TRACING : 10/14/2014 12.05 Since previous tracing, no significant change noted DOCTOR: Willie Hernandez Interpretating Date/Time 10/11/2016 15:40:46
--- NOTE | 2016-10-11 15:41 | EKG ---
Date Performed: 10/11/2016 Time Performed: 00:13:07 PTAGE: 86 years EKG: Sinus rhythm NORMAL ECG PREVIOUS TRACING : 10/10/2016 21.35 Since previous tracing, no significant change noted DOCTOR: Willie Hernandez Interpretating Date/Time 10/11/2016 15:40:23
--- NOTE | 2016-10-11 15:45 | TR ---
Date Performed: 10/11/2016 Time Performed: 10:13:28 DOCTOR: Willie Hernandez DRUG LIST: CLINICAL HISTORY: REASON FOR TEST: Angina REASON FOR ENDING: OBSERVATION: CONCLUSION: Lexiscan stress test was performed under standard four minute protocol. Radionuclid e was injected one minute prior to ending the test. No electrocardiographic abormalities were present to suggest ischemia. Nuclear imaging and interpretation are pending. COMMENTS:
== END 2016-10-11 16:56 | disposition home or self-care (01) ==
LOC: NEPE 20:17 → NEDA 22:44 → NEPFCDU 10-11 02:05
DX: R07.89 Other chest pain (principal); I48.0 Paroxysmal atrial fibrillation; I10 Essential (primary) hypertension; E78.5 Hyperlipidemia, unspecified; J98.11 Atelectasis; E78.00 Pure hypercholesterolemia, unspecified; M06.9 Rheumatoid arthritis, unspecified; Z96.641 Presence of right artificial hip joint
CPT/HCPCS: 71010; 78452; 80048; 82550; 82552; 83735; 84484; 85025; 85610; 85730; 93005; 93017; 99285; A9502; G0378; J2785

== ENCOUNTER 2017-08-08 19:40 | Inpatient (IN) | payer OTHER, MEDICARE ==
[~2017-08-08] VITALS: Ht 152.4 cm; Wt 76.0 kg
[~2017-08-08 19:40] MED LIST changes: -ALBU6.7H INH; -AMIO200 PO; -AMLO5 PO; +AMLO5TAB2 PO; -APIX5 PO; +APIX5TAB PO; +D200CAP2 PO; -FURO1TAB93 PO; +FURO40TA PO; -LISI-363 PO; +LISI-515 PO; +MECL-62 PO; +METO1TAB9 PO; -MILKSUS5 PO; -MOTI25CH PO; -MULT-65 PO; +OCUVTAB PO; -OMEP20TA39 PO; +OMEP20TA93 PO; -PRAV20 PO; +PRAV40TA2 PO; -VITA200017 PO
[2017-08-08 19:41] VITALS: BP 134/78; PULSE 155; RESP 18; TEMP 97.7; O2SAT 96
[2017-08-08 20:00] VITALS: O2SAT 98
[2017-08-08] MEDS ORDERED: DILTIAZEM HCL 25 MG/5 ML VIAL IV PUSH ONE (20:00)
[2017-08-08] MEDS ORDERED: ONDANSETRON HCL 4 MG/2 ML VIAL IV PUSH ONE (20:00)
[2017-08-08] MEDS ORDERED: AMLO2.5T PO (20:00)
--- NOTE | 2017-08-08 20:06 | PD ---
HPI Chief Complaint: Cardiac Complaint Time Seen by Provider: 19:46 Travel History International Travel<30 days: No Contact w/Intl Traveler<30days: No Traveled to known affect area: No History of Present Illness HPI The patient is an 86 year old female who presents to the [facility] emergency department with a history of reportedly not feeling well since approximately 3 PM today. She reports that she went to visit her primary care physician earlier today related to back pain that she's been experiencing in the low back for the last 2 weeks. She denies any fall or trauma. She reports it began after she walked for an extended period of time. The patient reports that she was newly started on oxycodone and took her first dose. She reports that she did eat prior to taking it, however shortly after taking it she began to have palpitations and nausea. She did not vomit. She reports that she did have diaphoresis. She reports that she has chronic shortness of breath that is no worse than usual. She reports that earlier today she did have a few minutes of chest pain, however she does not have chest pain currently. The patient does have a history of atrial fibrillation. The patient arrives in triage with a heart rate in the 150s. She denies any recent changes in her medication regimen. The patient reports that she does have a chronic intermittent cough that is productive of white sputum. She denies having any recent fevers, neck pain, abdominal pain, vomiting, diarrhea, urinary symptoms, or neurologic symptoms. [facility] Past Medical History Narrative Medical The patient's past medical history is significant for atrial fibrillation, chronically anticoagulated on Eliquis, history of COPD, history of hypertension , hyperlipidemia, rheumatoid arthritis. From reviewing the electronic medical record, the patient does have a recent history of having a chemical stress test done in September 2016 that was negative. Arthritis: Yes ("ALL OVER") Blood Disorders: No Heart Rhythm Problems: Yes (A FIB) Cancer: No Cardiac Catheterization: No Cardiovascular Problems: Yes High Cholesterol: Yes (TAKES MEDS) Chemotherapy: No Chest Pain: Yes Congestive Heart Failure: No Diabetes: No Diverticulitis: Yes Endocrine: No Gastrointestinal Disorders: Yes GERD: No Genitourinary: No Hepatitis: No Hiatal Hernia: Yes Hypertension: Yes Immune Disorder: No Implanted Vascular Access Dvce: No Musculoskeletal: Yes Neurologic: No Psychiatric: No Reproductive: No Respiratory: Yes Myocardial Infarction: No Radiation Therapy: No Ulcer: No Influenza Vaccination: Yes ?: Not Past Surgical History Narrative Surgical The patient's past surgical history is significant for hysterectomy, right hip replacement, cholecystectomy, cataract surgery. Abdominal Surgery: Yes (HYSTERECTOMY) AICD: No Appendectomy: No Arteriovenous Shunt: No Cardiac Surgery: No Cholecystectomy: Yes Coronary Artery Bypass Graft: No Ear Surgery: No Endocrine Surgery: No Eye Surgery: Yes (CATARACTS LEFT EYE 2010) Genitourinary Surgery: No Gynecologic Surgery: Yes (HYSTERECTOMY) Hysterectomy: Yes Insulin Pump: No Joint Replacement: Yes (RIGHT HIP REPLACEMENT 2001) Oral Surgery: No Pacemaker: No Thoracic Surgery: Yes Other Surgery: Yes Social History Alcohol Use: No Tobacco Use: No (quit 30 years ago) Substance Use: No Allergies-Medications (Allergen,Severity, Reaction): Coded Allergies: No Known Allergies (Verified Allergy, Unknown, 08/08/17) Reported Meds & Prescriptions Reported Meds & Active Scripts Active Reported Amlodipine (Amlodipine Besylate) 2.5 Mg Tab 2.5 Mg PO DAILY Metoprolol Succinate ER 24 HR (Metoprolol Succinate) 50 Mg Tab 25 Mg PO DAILY D3 (Cholecalciferol) 2,000 Unit Cap 2,000 Units PO DAILY Ocuvite (Multiple Vitamins W/ Minerals) 1 Tab 1 Tab PO DAILY Meclizine (Meclizine HCl) 25 Mg Tab 25 Mg PO DIRECTED PRN Furosemide 40 Mg Tab 40 Mg PO DAILY Omeprazole 20 Mg Tab 20 Mg PO DAILY Lisinopril 20 Mg Tab 20 Mg PO BID Pravastatin 40 Mg Tab 40 Mg PO DAILY Eliquis (Apixaban) 5 Mg Tab 5 Mg PO BID Review of Systems Except as stated in HPI: all other systems reviewed are Neg General / Constitutional: No: Fever Eyes: No: Visual changes HENT: No: Headaches Cardiovascular: Positive: Chest Pain or Discomfort, Dyspnea on exertion, Edema (worsening lower extremity edema for the last month) Respiratory: Positive: Cough, Shortness of Breath (chronic shortness of breath) Gastrointestinal: Positive: Nausea, No: Vomiting, Diarrhea, Abdominal Pain, Changes in Bowel Habits, Indigestion, Loss of Appetite Genitourinary: No: Dysuria Musculoskeletal: Positive: Myalgias, Arthralgias, Pain Skin: No Rash Neurologic: No: Weakness, Focal Abnormalities, Change in Mentation, Slurred Speech, Sensory Disturbance Psychiatric: No: Depression Endocrine: No: Polydipsia Hematologic/Lymphatic: No: Easy Bruising Physical Exam Narrative General: The patient is well-developed well-nourished female, uncomfortable appearing on arrival with a heart rate that ranges from the 130s to 160s on the monitor. She denies any chest pain or shortness of breath currently. Head and Neck exam: Head is normocephalic atraumatic. Eyes: EOMI, pupils are equal round and reactive to light. Nose: Midline septum with pink mucous membranes Mouth: Dentition unremarkable. Moist mucus membranes. Posterior oropharynx is not erythematous. No tonsillar hypertrophy. Uvula midline. Airway patent. Neck: No palpable lymphadenopathy. No nuchal rigidity. No thyromegaly. Cardiovascular: Irregularly irregular with a rate in the 130s without murmurs, gallops, or rubs. Lungs: Clear to auscultation bilaterally. No wheezes, rhonchi, or rales. Abdomen: Soft, without tenderness to palpation in all 4 quadrants of the abdomen. No guarding, rebound, or rigidity. Normal bowel sounds are audible. No tenderness on palpation of McBurney's point. Extremities: No clubbing or cyanosis. The patient has 1+ pitting edema bilateral lower extremities. 2+ pulses in all 4 extremities. Back: No spinous process tenderness to palpation. The patient reports having bilateral CVA tenderness on palpation. Neurologic Exam: Grossly nonfocal. Skin Exam: No rash noted. Intact skin that is warm and dry. Data Data Last Documented VS Vital Signs Date Time Temp Pulse Resp B/P (MAP) Pulse Ox O2 Delivery O2 Flow Rate FiO2 08/08/17 20:58 102 121/56 08/08/17 20:00 98 Room Air 08/08/17 19:41 97.7 18 Orders Orders Electrocardiogram (08/08/17 19:57) Complete Blood Count With Diff (08/08/17 19:57) Comprehensive Metabolic Panel (08/08/17 19:57) Creatine Kinase (Cpk) (08/08/17 19:57) Ckmb (Isoenzyme) Profile (08/08/17 19:57) Troponin I (08/08/17 19:57) B-Type Natriuretic Peptide (08/08/17 19:57) Prothrombin Time / Inr (Pt) (08/08/17 19:57) Act Partial Throm Time (Ptt) (08/08/17 19:57) Lipase (08/08/17 19:57) Urinalysis - C+S If Indicated (08/08/17 19:57) Magnesium (Mg) (08/08/17 19:57) Thyroid Stimulating Hormone (08/08/17 19:57) Chest, Single Ap (08/08/17 19:57) Iv Access Insert/Monitor (08/08/17 19:57) Ecg Monitoring (08/08/17 19:57) Oximetry (08/08/17 19:57) Diltiazem Inj (Cardizem Inj) (08/08/17 20:00) Diltiazem Inj (Cardizem Inj) (08/08/17 20:00) Ondansetron Inj (Zofran Inj) (08/08/17 20:00) Electrocardiogram (08/08/17 20:28) Admit Order (Ed Use Only) (08/08/17 21:46) Labs Laboratory Tests Test 08/08/17 20:10 White Blood Count 5.5 TH/MM3 Red Blood Count 4.04 MIL/MM3 Hemoglobin 12.2 GM/DL Hematocrit 37.3 % Mean Corpuscular Volume 92.2 FL Mean Corpuscular Hemoglobin 30.1 PG Mean Corpuscular Hemoglobin Concent 32.7 % Red Cell Distribution Width 14.5 % Platelet Count 313 TH/MM3 Mean Platelet Volume 6.9 FL Neutrophils (%) (Auto) 46.9 % Lymphocytes (%) (Auto) 44.9 % Monocytes (%) (Auto) 5.9 % Eosinophils (%) (Auto) 1.5 % Basophils (%) (Auto) 0.8 % Neutrophils # (Auto) 2.6 TH/MM3 Lymphocytes # (Auto) 2.5 TH/MM3 Monocytes # (Auto) 0.3 TH/MM3 Eosinophils # (Auto) 0.1 TH/MM3 Basophils # (Auto) 0.0 TH/MM3 CBC Comment DIFF FINAL Differential Comment Prothrombin Time 11.1 SEC Prothromb Time International Ratio 1.1 RATIO Activated Partial Thromboplast Time 25.2 SEC Blood Urea Nitrogen 16 MG/DL Creatinine 0.82 MG/DL Random Glucose 147 MG/DL Total Protein 7.0 GM/DL Albumin 2.8 GM/DL Calcium Level 8.7 MG/DL Magnesium Level 2.1 MG/DL Alkaline Phosphatase 70 U/L Aspartate Amino Transf (AST/SGOT) 22 U/L Alanine Aminotransferase (ALT/SGPT) 22 U/L Total Bilirubin 0.3 MG/DL Sodium Level 141 MEQ/L Potassium Level 3.4 MEQ/L Chloride Level 107 MEQ/L Carbon Dioxide Level 27.3 MEQ/L Anion Gap 7 MEQ/L Estimat Glomerular Filtration Rate 80 ML/MIN Total Creatine Kinase 85 U/L Troponin I LESS THAN 0.02 NG/ML B-Type Natriuretic Peptide 87 PG/ML Lipase 91 U/L Thyroid Stimulating Hormone 3rd Gen 0.399 uIU/ML MDM Medical Decision Making Medical Screen Exam Complete: Yes Emergency Medical Condition: Yes Medical Record Reviewed: Yes Interpretation(s) Last Impressions Chest X-Ray 08/08/171956 Signed Impressions: Service Date/Time: Tuesday, August 08, 2017 20:07 - CONCLUSION: 1. Minimal basilar atelectasis. No consolidation or effusion. Jorge Luis Barker MD Differential Diagnosis A. fib with RVR, versus SVT, versus sinus tachycardia, versus congestive heart failure, versus pneumonia Narrative Course During the course of the patients emergency department visit, the patients history, examination, and differential diagnosis were reviewed with the patient. The patient was placed on a campus monitor with oximetry and frequent blood pressure monitoring. The patient had IV access obtained and blood work sent for analysis. The patient had an ECG done on arrival that shows atrial fibrillation with RVR, heart rate 138, no acute ST segment elevation, QRS duration is 75 ms, QTC 355 ms. The patient was initially provided Cardizem 20 mg IV 1 followed by Cardizem as a drip to maintain her heart rate at less than or equal to 100, Zofran 4 mg IV for nausea. The patients laboratory studies were reviewed and remarkable for a white count of 5.5, hemoglobin 12.2, platelets 313 with 44.9 and lymphocytes, CMP is remarkable for potassium of 3.4, glucose 147, magnesium 2.1, CPK 85, troponin I less than 0.02, albumin 2.8, TSH 0.399, BNP is 87, PT 11.1, PTT 25.2 Radiology studies were reviewed and remarkable for a chest x-ray that shows minimal Beseler atelectasis, no consolidation or effusion. After the patient received a Cardizem bolus, the patient's heart rate did improve down to the 80s. She continues to be in atrial fibrillation. The patient will be observed closely for any return in her elevated heart rate. Her heart rate goes above 100 the Cardizem drip will be started. The patient's heart rate began to rise again and the patient was started on the Cardizem drip. The patients results were discussed with the patient, including the plan of care. I explained that further testing and/ or monitoring is indicated based on the patients history, examination, and/ or laboratory findings. Therefore, I recommended admission for additional evaluation. The patient expressed understanding and was agreeable with this plan. The patient was admitted to the hospital in stable condition and sent to a bed under the care of the [facility] [place] service. Physician Communication Physician Communication The patient's case including history, pertinent physical examination findings, and laboratory studies were discussed with Dr. Vidal. It was agreed that the patient would be admitted to the [facility] [place] service. Diagnosis Primary Impression: Atrial fibrillation with RVR Admitting Information Admitting Physician Requests: Shelly Kilpatrick MD Aug 08, 2017 20:06
--- NOTE | 2017-08-08 20:25 | RADRPT ---
EXAM DATE/TIME: 08/08/2017 20:07 [facility] COMPARISON: CHEST SINGLE AP, October 10, 2016, 20:44. INDICATIONS : Chest discomfort. MEDICAL HISTORY : Hypertension. A-fib. SURGICAL HISTORY : None. ENCOUNTER: Initial ACUITY: 1 day PAIN SCORE: 2/10 LOCATION: Bilateral chest FINDINGS: A single view of the chest demonstrates minimal basilar atelectasis. No effusion. No pneumothorax. He art size within normal limits. Tortuous aorta. Multiple loose bodies around the left shoulder joint. CONCLUSION: 1. Minimal basilar atelectasis. No consolidation or effusion. Jorge Luis Barker MD on August 08, 2017 at 20:23 Board Certified Radiologist. This report was verified electronically.
[2017-08-08 20:29] LABS: AUTOMATED NEUTROPHIL # 2.6 TH/MM3 (1.8-7.7); BASOPHIL % 0.8 % (0.0-2.0); EOSINOPHIL # 0.1 TH/MM3 (0-0.4); EOSINOPHIL % 1.5 % (0.0-4.0); HEMATOCRIT 37.3 % (35.0-46.0); HEMO FLAGS DIFF FINAL; LYMPH % 44.9 % (9.0-44.0); LYMPHOCYTE # 2.5 TH/MM3 (1.0-4.8); MEAN CELL VOLUME 92.2 FL (80.0-100.0); MEAN CORPUSCULAR HEMOGLOBIN 30.1 PG (27.0-34.0); MEAN CORPUSCULAR HGB CONC 32.7 % (32.0-36.0); MONO % 5.9 % (0.0-8.0); NEUT % 46.9 % (16.0-70.0); PLATELET COUNT 313 TH/MM3 (150-450); RED BLOOD COUNT 4.04 MIL/MM3 (4.00-5.30); RED CELL DISTRIBUTION WIDTH 14.5 % (11.6-17.2); WHITE BLOOD COUNT 5.5 TH/MM3 (4.0-11.0)
[2017-08-08 20:35] LABS: APTT (PATIENT) 25.2 SEC (24.3-30.1); INTERNATIONAL NORMALIZED RATIO 1.1 RATIO; PROTHROMBIN TIME - PATIENT 11.1 SEC (9.8-11.6)
[2017-08-08 20:53] LABS: ANION GAP 7 MEQ/L (5-15); AST (GOT) 22 U/L (15-37); BICARBONATE 27.3 MEQ/L (21.0-32.0); BLOOD UREA NITROGEN 16 MG/DL (7-18); CHLORIDE 107 MEQ/L (98-107); GLOMERULAR FILTRATION RATE 80 ML/MIN (>89); MAGNESIUM 2.1 MG/DL (1.5-2.5); POTASSIUM 3.4 MEQ/L (3.5-5.1); SODIUM (NA) 141 MEQ/L (136-145)
[2017-08-08] MEDS: DILTIAZEM INJ 125 MG in SODIUM CHLORIDE 0.9% INJ 100 ML IV PRN (20:58)
[2017-08-08 21:04] LABS: ALKALINE PHOSPHATASE 70 U/L (45-117); ALT (GPT) 22 U/L (10-53); TOTAL BILIRUBIN ADULT 0.3 MG/DL (0.2-1.0)
[2017-08-08 21:06] LABS: CREATINE KINASE 85 U/L (26-192)
[2017-08-08] MEDS ORDERED: SODIUM CHLORIDE 0.9% FLUSH 10 ML FLUSH IV FLUSH PRN (22:45)
[2017-08-08] MEDS ORDERED: POTASSIUM CHLORIDE 25 MEQ EFFERVESCENT TAB PO ONE (22:45)
[2017-08-08] MEDS ORDERED: DILTIAZEM INJ 125 MG in SODIUM CHLORIDE 0.9% INJ 100 ML IV PRN (22:45)
[2017-08-08 22:48] LABS: BACTERIA, URINE OCC /hpf; BLOOD, URINE NEG (NEG); COMMENT (UR) CULT NOT INDICATED; CULTURE IF INDICATED CULT NOT INDICATED; GLUCOSE,URINE NEG (NEG); KETONE, URINE NEG (NEG); MUCUS URINE FEW /lpf (OCC); NITRITE,URINE NEG (NEG); PH, URINE 6.5 (5.0-8.5); SQUAMOUS EPITHELIAL CELL URINE 3 /hpf (0-5); URINE COLOR LIGHT-YELLOW (YELLW/STRAW)
[2017-08-08 23:00] VITALS: BP 118/57; PULSE 105; RESP 20; O2SAT 98
--- NOTE | 2017-08-08 23:37 | HHI.HP ---
[facility] Service [facility] Primary Care Physician Ana Diggs MD Admission Diagnosis afib with rvr Diagnoses: Travel History International Travel<30 Days: No Contact w/Intl Traveler <30 Da: No Traveled to Known Affected Are: No History of Present Illness 86-year-old female with a past medical history significant for RA, A. fib anticoagulated on Eliquis, hyperlipidemia and hypertension presents to the emergency department for evaluation of "just not feeling well." The patient reports she recently was prescribed oxycodone and took her first dose earlier today. She reports palpitations and nausea shortly after taking the medication. She also reports transient chest pain which is now resolved. She reports shortness of breath which is her baseline. On arrival to the emergency department the patient had a heart rate of 102. EKG showed atrial fibrillation with rapid ventricular response. Review of Systems Denies fever or chills Denies blurry vision, otorrhea, rhinorrhea Denies sore throat and cough No chest pain, palpitations, shortness of breath No abdominal pain Denies constipation/diarrhea/vomiting. Positive nausea Denies muscle pain/weakness No rashes Past Family Social History Past Medical History Rheumatoid arthritis Atrial fibrillation Hyperlipidemia Diverticulitis Hiatal hernia Hypertension Past Surgical History Hysterectomy Inguinal hernia repair Right hip replacement Cholecystectomy Cataract surgery Reported Medications Reported Meds & Active Scripts Active Reported Amlodipine (Amlodipine Besylate) 2.5 Mg Tab 2.5 Mg PO DAILY Metoprolol Succinate ER 24 HR (Metoprolol Succinate) 50 Mg Tab 25 Mg PO DAILY D3 (Cholecalciferol) 2,000 Unit Cap 2,000 Units PO DAILY Ocuvite (Multiple Vitamins W/ Minerals) 1 Tab 1 Tab PO DAILY Meclizine (Meclizine HCl) 25 Mg Tab 25 Mg PO DIRECTED PRN Furosemide 40 Mg Tab 40 Mg PO DAILY Omeprazole 20 Mg Tab 20 Mg PO DAILY Lisinopril 20 Mg Tab 20 Mg PO BID Pravastatin 40 Mg Tab 40 Mg PO DAILY Eliquis (Apixaban) 5 Mg Tab 5 Mg PO BID Allergies: Coded Allergies: No Known Allergies (Verified Allergy, Unknown, 08/08/17) Family History No family history of CAD or DM Social History Denies alcohol, tobacco and drug use Physical Exam Vital Signs Vital Signs Date Time Temp Pulse Resp B/P (MAP) Pulse Ox O2 Delivery O2 Flow Rate FiO2 08/08/17 23:00 105 20 118/57 (77) 98 Room Air 08/08/17 20:58 102 121/56 08/08/17 20:00 98 Room Air 08/08/17 19:41 97.7 155 18 134/78 (96) 96 Room Air Physical Exam GENERAL: female lying down in bed SKIN: No rashes, ecchymoses or lesions. Cool and dry. HEAD: Atraumatic. Normocephalic. No temporal or scalp tenderness. EYES: Pupils equal round and reactive. Extraocular motions intact. No scleral icterus. No injection or drainage. ENT: Nose without bleeding, purulent drainage or septal hematoma. Throat without erythema, tonsillar hypertrophy or exudate. Uvula midline. Airway patent. NECK: Trachea midline. No JVD or lymphadenopathy. Supple, nontender, no meningeal signs. CARDIOVASCULAR: Tachycardic. Irregularly irregular rhythm without murmurs, gallops, or rubs. RESPIRATORY: Clear to auscultation. Breath sounds equal bilaterally. No wheezes , rales, or rhonchi. GASTROINTESTINAL: Abdomen soft, non-tender, nondistended. No hepato-splenomegaly , or palpable masses. No guarding. MUSCULOSKELETAL: 2+ edema to the knees bilaterally. No calf tenderness. NEUROLOGICAL: Awake and alert. Cranial nerves II through XII intact. Motor and sensory grossly within normal limits. Normal speech. Laboratory Laboratory Tests Test 08/08/17 20:10 08/08/17 22:05 White Blood Count 5.5 Red Blood Count 4.04 Hemoglobin 12.2 Hematocrit 37.3 Mean Corpuscular Volume 92.2 Mean Corpuscular Hemoglobin 30.1 Mean Corpuscular Hemoglobin Concent 32.7 Red Cell Distribution Width 14.5 Platelet Count 313 Mean Platelet Volume 6.9 Neutrophils (%) (Auto) 46.9 Lymphocytes (%) (Auto) 44.9 Monocytes (%) (Auto) 5.9 Eosinophils (%) (Auto) 1.5 Basophils (%) (Auto) 0.8 Neutrophils # (Auto) 2.6 Lymphocytes # (Auto) 2.5 Monocytes # (Auto) 0.3 Eosinophils # (Auto) 0.1 Basophils # (Auto) 0.0 CBC Comment DIFF FINAL Differential Comment Prothrombin Time 11.1 Prothromb Time International Ratio 1.1 Activated Partial Thromboplast Time 25.2 Blood Urea Nitrogen 16 Creatinine 0.82 Random Glucose 147 Total Protein 7.0 Albumin 2.8 Calcium Level 8.7 Magnesium Level 2.1 Alkaline Phosphatase 70 Aspartate Amino Transf (AST/SGOT) 22 Alanine Aminotransferase (ALT/SGPT) 22 Total Bilirubin 0.3 Sodium Level 141 Potassium Level 3.4 Chloride Level 107 Carbon Dioxide Level 27.3 Anion Gap 7 Estimat Glomerular Filtration Rate 80 Total Creatine Kinase 85 Troponin I LESS THAN 0.02 B-Type Natriuretic Peptide 87 Lipase 91 Thyroid Stimulating Hormone 3rd Gen 0.399 Urine Color LIGHT-YELLOW Urine Turbidity CLEAR Urine pH 6.5 Urine Specific [place] 1.008 Urine Protein NEG Urine Glucose (UA) NEG Urine Ketones NEG Urine Occult Blood NEG Urine Nitrite NEG Urine Bilirubin NEG Urine Urobilinogen LESS THAN 2.0 Urine Leukocyte Esterase NEG Urine RBC 1 Urine WBC LESS THAN 1 Urine Squamous Epithelial Cells 3 Urine Bacteria OCC Urine Mucus FEW Microscopic Urinalysis Comment CULT NOT INDICATED Result Diagram: 08/08/17200908/08/172009 Caprini VTE Risk Assessment Caprini VTE Risk Assessment: Mod/High Risk (score >= 2) Caprini Risk Assessment Model Point Value = 1 Point Value = 2 Point Value = 3 Point Value = 5 Age 41-60 Minor surgery BMI > 25 kg/m2 Swollen legs Varicose veins or History of unexplained or recurrent spontaneous Oral contraceptives or hormone replacement Sepsis (< 1 month) Serious lung disease, including pneumonia (< 1 month) Abnormal pulmonary function Acute myocardial infarction Congestive heart failure (< 1 month) History of inflammatory bowel disease Medical patient at bed rest Age 61-74 Arthroscopic surgery Major open surgery (> 45 min) Laparoscopic surgery (> 45 min) Malignancy Confined to bed (> 72 hours) Immobilizing plaster cast Central venous access Age >= 75 History of VTE Family history of VTE Factor V Leiden Prothrombin [id number] Lupus anticoagulant Anticardiolipin antibodies Elevated serum homocysteine Heparin-induced thrombocytopenia Other congenital or acquired thrombophilia Stroke (< 1 month) Elective arthroplasty Hip, pelvis, or leg fracture Acute spinal cord injury (< 1 month) Prophylaxis Regimen Total Risk Factor Score Risk Level Prophylaxis Regimen 0-1 Low Early ambulation 2 Moderate Order ONE of the following: *Sequential Compression Device (SCD) *Heparin 5000 units SQ BID 3-4 Higher Order ONE of the following medications: *Heparin 5000 units SQ TID *Enoxaparin/Lovenox 40 mg SQ daily (WT < 150 kg, CrCl > 30 mL/min) *Enoxaparin/Lovenox 30 mg SQ daily (WT < 150 kg, CrCl > 10-29 mL/min) *Enoxaparin/Lovenox 30 mg SQ BID (WT < 150 kg, CrCl > 30 mL/min) AND/OR *Sequential Compression Device (SCD) 5 or more Highest Order ONE of the following medications: *Heparin 5000 units SQ TID (Preferred with Epidurals) *Enoxaparin/Lovenox 40 mg SQ daily (WT < 150 kg, CrCl > 30 mL/min) *Enoxaparin/Lovenox 30 mg SQ daily (WT < 150 kg, CrCl > 10-29 mL/min) *Enoxaparin/Lovenox 30 mg SQ BID (WT < 150 kg, CrCl > 30 mL/min) AND *Sequential Compression Device (SCD) Assessment and Plan Assessment and Plan Assessment/plan: 1. Atrial fibrillation with rapid ventricular response/transient chest pain EKG significant for A. 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 Hypokalemia Repleted with by mouth potassium Follow-up BMP 3. Hypertension Continue home amlodipine, lisinopril, Lasix 4. Hyperlipidemia Continue home statin FEN Heart healthy diet Electrolytes: as above Eliquis Case discussed with ER physician at length Physician Certification 2 Midnight Certification Type: Admission for Inpatient Services Order for Inpatient Services The services are ordered in accordance with Medicare regulations or non- Medicare payer requirements, as applicable. In the case of services not specified as inpatient-only, they are appropriately provided as inpatient services in accordance with the 2-midnight benchmark. Estimated LOS (days): 2 2 days is the estimated time the patient will need to remain in the hospital, assuming treatment plan goals are met and no additional complications. Post-Hospital Plan: Not yet determined Roslyn Vidal MD Aug 08, 2017 23:37
[2017-08-09] VITALS (9 sets, daily range): BP systolic 112–143; BP diastolic 56–87; PULSE 69–111; RESP 12–18; TEMP 98.3–98.8; O2SAT 95–99
[2017-08-09 02:46] LABS: HEMATOCRIT 35.8 % (35.0-46.0); MEAN CORPUSCULAR HEMOGLOBIN 30.9 PG (27.0-34.0); MEAN CORPUSCULAR HGB CONC 33.6 % (32.0-36.0); PLATELET COUNT 287 TH/MM3 (150-450); RED BLOOD COUNT 3.89 MIL/MM3 (4.00-5.30); RED CELL DISTRIBUTION WIDTH 14.4 % (11.6-17.2); REVIEW FLAG FINAL
[2017-08-09 03:18] LABS: BICARBONATE 29.1 MEQ/L (21.0-32.0); POTASSIUM 4.6 MEQ/L (3.5-5.1)
[2017-08-09] MEDS: DILTIAZEM INJ 125 MG in SODIUM CHLORIDE 0.9% INJ 100 ML IV PRN (07:54)
[2017-08-09] MEDS ORDERED: METOPROLOL SUCCINATE 25 MG EXTENDED RELEASE TAB PO SCH (09:00)
[2017-08-09] MEDS ORDERED: FUROSEMIDE 40 MG TAB PO SCH (09:00)
[2017-08-09] MEDS ORDERED: amLODIPine BESYLATE 5 MG TAB PO SCH (09:00)
[2017-08-09] MEDS ORDERED: LISINOPRIL 20 MG TAB PO SCH (09:00)
[2017-08-09] MEDS ORDERED: APIXABAN 5 MG TABLET PO SCH (09:00)
[2017-08-09] MEDS ORDERED: PANTOPRAZOLE SOD 20 MG DELAYED RELEASE TAB PO SCH (09:00)
[2017-08-09] MEDS ORDERED: SODIUM CHLORIDE 0.9% FLUSH 10 ML FLUSH IV FLUSH SCH (09:00)
[2017-08-09] MEDS ORDERED: PRAVASTATIN SOD 40 MG TAB PO SCH (09:00)
[2017-08-09] MEDS ORDERED: DILTIAZEM HCL 30 MG TAB PO ONE (10:00)
[2017-08-09] MEDS ORDERED: DILTIAZEM-CD 300 MG CAP ER PO SCH (10:00)
[2017-08-09 10:45] LABS: MAGNESIUM 2.2 MG/DL (1.5-2.5)
--- NOTE | 2017-08-09 12:14 | EKG ---
Date Performed: 08/08/2017 Time Performed: 20:25:33 PTAGE: 86 years EKG: ATRIAL FIBRILLATION WITH RAPID VENTRICULAR RESPONSE MODERATE ST DEPRESSION ABNORMAL ECG Com pared to PREVIOUS TRACING , the atrial fibrillation and the ST changes are new. PREVIOUS TRACIN08/08/2017 19.51 DOCTOR: Marvin Clark Interpretating Date/Time 08/09/2017 12:13:53
--- NOTE | 2017-08-09 12:16 | EKG ---
Date Performed: 08/08/2017 Time Performed: 23:03:09 PTAGE: 86 years EKG: ATRIAL FIBRILLATION ABNORMAL RHYTHM ECG Compared to PREVIOUS TRACING , the ST changes have resolved. PREVIOUS TRACIN08/08/2017 20.28 DOCTOR: Marvin Clark Interpretating Date/Time 08/09/2017 12:14:49
--- NOTE | 2017-08-09 12:16 | EKG ---
Date Performed: 08/08/2017 Time Performed: 20:28:12 PTAGE: 86 years EKG: ATRIAL FIBRILLATION MINIMAL ST DEPRESSION ABNORMAL RHYTHM ECG Compared to PREVIOUS TRACING , the ventricular rate is controlled and the ST abnormalities are more p revalent. PREVIOUS TRACIN08/08/2017 20.25 DOCTOR: Marvin Clark Interpretating Date/Time 08/09/2017 12:14:34
[2017-08-09] MEDS ORDERED: DILT300C3 PO (14:36)
--- NOTE | 2017-08-09 22:28 | HHI.DS ---
Discharge Summary Admission Date Aug 08, 2017 at 21:48 Discharge Date: Aug 09, 2017 Admitting Diagnosis afib with rvr (1) Atrial fibrillation with rapid ventricular response ICD Code: I48.91 - Unspecified atrial fibrillation Procedures no invasive procedures. Brief History - From Admission 86-year-old female with a past medical history significant for RA, A. fib anticoagulated on Eliquis, hyperlipidemia and hypertension presents to the emergency department for evaluation of "just not feeling well." The patient reports she recently was prescribed oxycodone and took her first dose earlier today. She reports palpitations and nausea shortly after taking the medication. She also reports transient chest pain which is now resolved. She reports shortness of breath which is her baseline. On arrival to the emergency department the patient had a heart rate of 102. EKG showed atrial fibrillation with rapid ventricular response. CBC/BMP: 08/09/17 0237 08/09/17 0237 Significant Findings Laboratory Tests Test 08/08/17 20:10 08/08/17 22:05 08/09/17 02:37 08/09/17 09:59 Mean Platelet Volume 6.9 FL (7.0-11.0) Lymphocytes (%) (Auto) 44.9 % (9.0-44.0) Random Glucose 147 MG/DL (74-106) Albumin 2.8 GM/DL (3.4-5.0) Potassium Level 3.4 MEQ/L (3.5-5.1) Estimat Glomerular Filtration Rate 80 ML/MIN (>89) Troponin I LESS THAN 0.02 NG/ML Urine Bacteria OCC /hpf (NONE) Urine Mucus FEW /lpf (OCC) Red Blood Count 3.89 MIL/MM3 (4.00-5.30) Chloride Level 110 MEQ/L (98-107) Anion Gap 4 MEQ/L (5-15) PE at Discharge GENERAL: patient sitting up in bed. Appears comfortable. Alert and oriented 3. SKIN: Warm and dry. HEAD: Normocephalic. EYES: No scleral icterus. No injection or drainage. NECK: Supple, trachea midline. No JVD or lymphadenopathy. CARDIOVASCULAR: Regular rate and rhythm without murmurs, gallops, or rubs. RESPIRATORY: Breath sounds equal bilaterally. No accessory muscle use. GASTROINTESTINAL: Abdomen soft, non-tender, nondistended. MUSCULOSKELETAL: No cyanosis, or edema. BACK: Nontender without obvious deformity. No CVA tenderness. Pt update on day of discharge Patient seen today around noon. Says she is feeling well. Denies any chest pain or shortness of breath.. Says she did have chest pain and palpitations yesterday which have resolved. Says she would like to go home. She said she will spanish moss picker her medication. Says she'll make sure to schedule follow-up with primary care, as well as cardiology. Hospital Course Patient presented with atrial fibrillation RVR. She did have some ST depression along with tachycardia on EKG which resolved with control of heart rate. Heart rate controlled on diltiazem 7.5 mg per hour, and she was transitioned to diltiazem 300 mg long-acting daily dose. She will be discharged home with close follow-up primary care, cardiology. patient had some chest pain, demand ischemia with rapid heart rate, however resolved with heart rate control. It is likely that episode of atrial fibrillation with RVR was triggered by recent addition of oxycodone which caused nausea and dizziness. She will discontinue oxycodone. For problem-based summary from most recent progress note, please see below. 1. Atrial fibrillation with rapid ventricular response/transient chest pain EKG significant for A. 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 Transition to 300 mg long- acting diltiazem daily in addition to metoprolol. Discharge home. Follow-up radiology, primary care.. Continue anticoagulation. This episode could have been triggered by nausea secondary to oxycodone. Patient will discontinue oxycodone 2. Hypokalemia. 3.4 on admission. Magnesium within normal limits. Repleted with by mouth potassium Follow-up BMP = Resolved after replacement. 3. Hypertension Continue home amlodipine, lisinopril, Lasix 4. Hyperlipidemia Continue home statin FEN Heart healthy diet Electrolytes: as above Eliquis Pt Condition on Discharge: Good Discharge Disposition: Discharge Home Discharge Time: > 30 minutes Discharge Instructions DIET: Follow Instructions for: Heart Healthy Diet Activities you can perform: Regular-No Restrictions Follow up Referrals: Cardiology - 1 Week PCP Follow-up - 1 Week with Ana Diggs MD New Medications: Diltiazem CD 24 HR (Diltiazem CD 24 HR) 300 Mg Caper 300 MG PO DAILY for heart for 30 Days, #30 CAP Continued Medications: Apixaban (Eliquis) 5 Mg Tab 5 MG PO BID for Blood Clot Prevention, #60 TAB 0 Refills Cholecalciferol (D3) 2,000 Unit Cap 2000 UNITS PO DAILY Furosemide (Furosemide) 40 Mg Tab 40 MG PO DAILY, #30 TAB 0 Refills Lisinopril (Lisinopril) 20 Mg Tab 20 MG PO BID, #30 TAB 0 Refills Meclizine (Meclizine) 25 Mg Tab 25 MG PO DIRECTED PRN for VERTIGO, TAB 0 Refills Metoprolol Succinate ER 24 HR (Metoprolol Succinate ER 24 HR) 50 Mg Tab 25 MG PO DAILY, #30 TAB 0 Refills Multiple Vitamins W/ Minerals (Ocuvite) 1 Tab 1 TAB PO DAILY for Nutritional Supplement, TAB 0 Refills Omeprazole (Omeprazole) 20 Mg Tab 20 MG PO DAILY, #30 TAB 0 Refills Pravastatin (Pravastatin) 40 Mg Tab 40 MG PO DAILY for Cholesterol Management, #30 TAB 0 Refills Discontinued Medications: Amlodipine (Amlodipine) 2.5 Mg Tab 2.5 MG PO DAILY for Blood Pressure Management, #30 TAB 0 Refills Bhavesh Styles MD Aug 09, 2017 22:28
== END 2017-08-09 16:20 | disposition home or self-care (01) | DRG 310 ==
LOC: NEPE 19:40 → NEDA 21:48 → HCVI 08-09 00:50
PROVIDERS: ADMIT Internal Medicine; ATTEND Internal Medicine
DX: I48.91 Unspecified atrial fibrillation (principal); J44.9 Chronic obstructive pulmonary disease, unspecified; M06.9 Rheumatoid arthritis, unspecified; I10 Essential (primary) hypertension; E87.6 Hypokalemia; E78.5 Hyperlipidemia, unspecified; M19.90 Unspecified osteoarthritis, unspecified site; Z96.641 Presence of right artificial hip joint; R00.0 Tachycardia, unspecified; T40.2X5A Adverse effect of other opioids, initial encounter; Z87.891 Personal history of nicotine dependence; Z79.01 Long term (current) use of anticoagulants
CPT/HCPCS: 71010; 80048; 80053; 81001; 82550; 83690; 83735; 83880; 84443; 84484; 85025; 85027; 85610; 85730; 93005; J2405

== ENCOUNTER 2017-10-27 13:30 | Inpatient (IN) | payer OTHER, MEDICAID, MEDICARE ==
[~2017-10-27] VITALS: Ht 152.4 cm; Wt 73.0 kg
[~2017-10-27 13:30] MED LIST changes: -AMLO5TAB2 PO; +DILT300C3 PO
[2017-10-27] MEDS ORDERED: DILTIAZEM HCL 25 MG/5 ML VIAL IV ONE ×2 (13:45)
[2017-10-27 13:46] VITALS: BP 124/92; PULSE 145; RESP 21; TEMP 98.5; O2SAT 96
[2017-10-27 14:09] VITALS: BP 115/60; PULSE 95; RESP 18; O2SAT 100
--- NOTE | 2017-10-27 14:18 | RADRPT ---
EXAM DATE/TIME: 10/27/2017 13:58 [place] COMPARISON: No previous studies available for comparison. INDICATIONS : Chest pain. MEDICAL HISTORY : Hypertension. A-fib SURGICAL HISTORY : None. ENCOUNTER: Initial ACUITY: 1 day PAIN SCORE: 3/10 LOCATION: Left chest FINDINGS: A single view of the chest demonstrates the lungs to be symmetrically aerated without evidence of mas s, infiltrate or effusion. The cardiomediastinal contours are unremarkable. Osseous structures are intact. Periarticular shoulder calcifications. CONCLUSION: No acute disease. Yohan Morrow MD on October 27, 2017 at 14:17 Board Certified Radiologist. This report was verified electronically.
[2017-10-27 14:22] LABS: AUTOMATED NEUTROPHIL # 2.2 TH/MM3 (1.8-7.7); BASOPHIL % 0.5 % (0.0-2.0); EOSINOPHIL # 0.1 TH/MM3 (0-0.4); EOSINOPHIL % 1.1 % (0.0-4.0); HEMATOCRIT 39.4 % (35.0-46.0); HEMOGLOBIN 13.3 GM/DL (11.6-15.3); LYMPH % 48.2 % (9.0-44.0); LYMPHOCYTE # 2.5 TH/MM3 (1.0-4.8); MEAN CELL VOLUME 91.9 FL (80.0-100.0); MEAN CORPUSCULAR HEMOGLOBIN 31.1 PG (27.0-34.0); MEAN CORPUSCULAR HGB CONC 33.8 % (32.0-36.0); MEAN PLATELET VOLUME 7.1 FL (7.0-11.0); MONOCYTE # 0.4 TH/MM3 (0-0.9); NEUT % 42.2 % (16.0-70.0); PLATELET COUNT 338 TH/MM3 (150-450); RED BLOOD COUNT 4.29 MIL/MM3 (4.00-5.30); RED CELL DISTRIBUTION WIDTH 14.6 % (11.6-17.2); WHITE BLOOD COUNT 5.2 TH/MM3 (4.0-11.0)
--- NOTE | 2017-10-27 14:30 | PD ---
HPI Chief Complaint: Chest Pain Time Seen by Provider: 13:43 Travel History International Travel<30 days: No Contact w/Intl Traveler<30days: No Traveled to known affect area: No History of Present Illness HPI 87-year-old female arrives by EMS. She has chest pain described as a heavy weight retrosternal which started last night while she was in bed. She reports dyspnea on exertion and orthopnea. Additional complaints include lower extremity swelling. The patient's history of A. fib with RVR and reports compliance with Eliquis. No fever or cough. PFSH Past Medical History Hx Anticoagulant Therapy: Yes (eliquis) Arthritis: Yes (rheumatoid arthritis and OA) Asthma: Yes Atrial Fibrillation: Yes Autoimmune Disease: No Blood Disorders: No Anxiety: No Depression: Yes Heart Rhythm Problems: Yes (Chronic atrial fibrillation) Cancer: Yes Cardiac Catheterization: No Cardiovascular Problems: Yes (a-fib ) High Cholesterol: Yes Chemotherapy: No Chest Pain: Yes Congestive Heart Failure: Yes COPD: Yes Diabetes: No Diverticulitis: Yes Endocrine: No Gastrointestinal Disorders: Yes GERD: Yes Genitourinary: Yes Hepatitis: No Hiatal Hernia: Yes Hypertension: Yes Immune Disorder: No Implanted Vascular Access Dvce: No Kidney Stones: No Musculoskeletal: Yes Neurologic: No Psychiatric: No Reproductive: No Respiratory: Yes Myocardial Infarction: No Radiation Therapy: No Renal Failure: No Sickle Cell Disease: No Sleep Apnea: No Thyroid Disease: No Ulcer: Yes Influenza Vaccination: Yes Past Surgical History Abdominal Surgery: Yes (cholecystectomy) AICD: No Appendectomy: No Arteriovenous Shunt: No Cardiac Surgery: No Cholecystectomy: Yes Coronary Artery Bypass Graft: No Ear Surgery: No Endocrine Surgery: No Eye Surgery: Yes (Left eye cataract surgery) Genitourinary Surgery: No Gynecologic Surgery: Yes Hysterectomy: Yes Insulin Pump: No Joint Replacement: Yes (Right hip replacement, 2001) Oral Surgery: No Pacemaker: No Thoracic Surgery: No Other Surgery: Yes Social History Alcohol Use: No Tobacco Use: No (quit 30 years ago) Substance Use: No Allergies-Medications (Allergen,Severity, Reaction): Coded Allergies: No Known Allergies (Verified Allergy, Unknown, 10/27/17) Reported Meds & Prescriptions Reported Meds & Active Scripts Active Reported Multiple Vitamin 1 Tab 1 Tab PO DAILY Ventolin Hfa 18 GM Inh (Albuterol Sulfate) 90 Mcg/Act Aer 2 Puff INH Q4H PRN Tylenol (Acetaminophen) 325 Mg Tab 650 Mg PO Q4H PRN Systane Opth Drops (Polyethylene Glycol-Propylene Glycol Opth Drp) 0.4-0.3% Soln 1-2 Drop RIGHT EYE PRN PRN Metoprolol Succinate ER 24 HR (Metoprolol Succinate) 50 Mg Tab 25 Mg PO DAILY D3 (Cholecalciferol) 2,000 Unit Cap 2,000 Units PO DAILY Ocuvite (Multiple Vitamins W/ Minerals) 1 Tab 1 Tab PO DAILY Meclizine (Meclizine HCl) 25 Mg Tab 25 Mg PO DIRECTED PRN Furosemide 40 Mg Tab 40 Mg PO DAILY Omeprazole 20 Mg Tab 20 Mg PO DAILY Lisinopril 20 Mg Tab 20 Mg PO BID Pravastatin 40 Mg Tab 40 Mg PO DAILY Eliquis (Apixaban) 5 Mg Tab 5 Mg PO BID Review of Systems Except as stated in HPI: all other systems reviewed are Neg General / Constitutional: No: Fever Eyes: No: Diploplia Physical Exam Narrative GENERAL: 87-year-old female, pleasant mild distress Vital Signs Date Time Temp Pulse Resp B/P (MAP) Pulse Ox O2 Delivery O2 Flow Rate FiO2 10/27/17 14:09 95 18 115/60 (78) 100 Room Air 10/27/17 13:46 98.5 145 21 124/92 (103) 96 Room Air SKIN: Warm and dry. HEAD: Atraumatic. Normocephalic. EYES: Pupils equal and round. No scleral icterus. No injection or drainage. ENT: No nasal bleeding or discharge. Mucous membranes pink and moist. NECK: Trachea midline. No JVD. CARDIOVASCULAR: Irregular. The rate is about 100 4150. RESPIRATORY: No accessory muscle use. Clear to auscultation. Breath sounds equal bilaterally. GASTROINTESTINAL: Abdomen soft, non-tender, nondistended. Hepatic and splenic margins not palpable. MUSCULOSKELETAL: 2+ pitting edema bilateral lower extremities. No gross deformity. NEUROLOGICAL: Awake and alert. No obvious cranial nerve deficits. Motor grossly within normal limits. Five out of 5 muscle strength in the arms and legs. Normal speech. PSYCHIATRIC: Appropriate mood and affect; insight and judgment normal. Data Data Last Documented VS Vital Signs Date Time Temp Pulse Resp B/P (MAP) Pulse Ox O2 Delivery O2 Flow Rate FiO2 10/27/17 14:09 95 18 115/60 (78) 100 Room Air 10/27/17 13:46 98.5 Orders Orders Electrocardiogram (10/27/17 13:45) Complete Blood Count With Diff (10/27/17 13:45) Basic Metabolic Panel (Bmp) (10/27/17 13:45) Ckmb (Isoenzyme) Profile (10/27/17 13:45) Troponin I (10/27/17 13:45) Chest, Single Ap (10/27/17 13:45) Iv Access Insert/Monitor (10/27/17 13:45) Ecg Monitoring (10/27/17 13:45) Oxygen Administration (10/27/17 13:45) Oximetry (10/27/17 13:45) B-Type Natriuretic Peptide (10/27/17 13:45) Diltiazem Inj (Cardizem Inj) (10/27/17 13:45) Diltiazem Inj (Cardizem Inj) (10/27/17 13:45) Admit Order (Ed Use Only) (10/27/17 ) Retail Route Supervisor / Telemetry [id number] (10/27/17 15:55) Vital Signs (Adult) Q4H (10/27/17 15:55) Diet Heart Healthy (10/27/17 Dinner) Activity Bed Rest (10/27/17 15:55) Activity Oob With Assistance (10/27/17 15:55) Labs Laboratory Tests Test 10/27/17 13:56 White Blood Count 5.2 TH/MM3 Red Blood Count 4.29 MIL/MM3 Hemoglobin 13.3 GM/DL Hematocrit 39.4 % Mean Corpuscular Volume 91.9 FL Mean Corpuscular Hemoglobin 31.1 PG Mean Corpuscular Hemoglobin Concent 33.8 % Red Cell Distribution Width 14.6 % Platelet Count 338 TH/MM3 Mean Platelet Volume 7.1 FL Neutrophils (%) (Auto) 42.2 % Lymphocytes (%) (Auto) 48.2 % Monocytes (%) (Auto) 8.0 % Eosinophils (%) (Auto) 1.1 % Basophils (%) (Auto) 0.5 % Neutrophils # (Auto) 2.2 TH/MM3 Lymphocytes # (Auto) 2.5 TH/MM3 Monocytes # (Auto) 0.4 TH/MM3 Eosinophils # (Auto) 0.1 TH/MM3 Basophils # (Auto) 0.0 TH/MM3 CBC Comment DIFF FINAL Differential Comment Blood Urea Nitrogen 14 MG/DL Creatinine 0.85 MG/DL Random Glucose 170 MG/DL Calcium Level 9.3 MG/DL Sodium Level 138 MEQ/L Potassium Level 3.8 MEQ/L Chloride Level 103 MEQ/L Carbon Dioxide Level 26.4 MEQ/L Anion Gap 9 MEQ/L Estimat Glomerular Filtration Rate 77 ML/MIN Total Creatine Kinase 92 U/L Troponin I LESS THAN 0.02 NG/ML B-Type Natriuretic Peptide 90 PG/ML MDM Medical Decision Making Medical Screen Exam Complete: Yes Emergency Medical Condition: Yes Medical Record Reviewed: Yes Differential Diagnosis NSTEMI, unstable angina, coronary vasospasm, PE, PTX, aortic dissection, pericarditis, myocarditis, endocarditis, PNA, esophageal disease, aneurysm, musculoskeletal etiologies, anxiety, cocaine/sympathomimetic abuse Narrative Course EKG shows A. fib with RVR at a rate of approximately 150 EKG shows A. fib with a rate of 90 after 10 mg of IV diltiazem CBC & BMP Diagram 10/27/17 13:56 Vital Signs Date Time Temp Pulse Resp B/P (MAP) Pulse Ox O2 Delivery O2 Flow Rate FiO2 10/27/17 14:09 95 18 115/60 (78) 100 Room Air 10/27/17 13:46 98.5 145 21 124/92 (103) 96 Room Air < 0CBC & BMP Diagram 10/27/17 13:56 Calcium Level 9.3 Troponin < 0.02 Diltiazem given once 10mg Persistent chest pain reported pt lost two sisters in last two weeks Admission for several enzymes and rate control as needed d/w Dr Dunne Diagnosis Primary Impression: Atrial fibrillation with rapid ventricular response Additional Impressions: Chest pain in adult Chronic obstructive pulmonary disease (COPD) Miguel Joseph MD Oct 27, 2017 14:30
[2017-10-27 14:38] LABS: BICARBONATE 26.4 MEQ/L (21.0-32.0); BLOOD UREA NITROGEN 14 MG/DL (7-18); CALCIUM 9.3 MG/DL (8.5-10.1); CHLORIDE 103 MEQ/L (98-107); CREATININE 0.85 MG/DL (0.50-1.00); GLOMERULAR FILTRATION RATE 77 ML/MIN (>89); GLUCOSE,RANDOM 170 MG/DL (74-106); SODIUM (NA) 138 MEQ/L (136-145)
[2017-10-27 14:42] LABS: TROPONIN I LESS THAN 0.02 NG/ML (0.02-0.05)
[2017-10-27] MEDS ORDERED: SYSTSOL RIGHT EYE (15:27)
[2017-10-27] MEDS ORDERED: SODIUM CHLORIDE 0.9% FLUSH 10 ML FLUSH IV FLUSH PRN (16:15)
--- NOTE | 2017-10-27 17:25 | HHI.HP ---
cc: Ana Diggs MD [facility] Service [facility] Primary Care Physician Ana Diggs MD Admission Diagnosis AFIB RVR; Chest Pain Diagnoses: (1) Chest pain (2) Atrial fibrillation with rapid ventricular response (3) Hypertension (4) Hyperlipidemia Chief Complaint: Chest pain Travel History International Travel<30 Days: No Contact w/Intl Traveler <30 Da: No Traveled to Known Affected Are: No History of Present Illness The patient is an 87-year-old female who presented to the emergency department with complaint of chest pain. She describes the pain as pressure in the center of her chest. There is no radiation of the discomfort. The pain started last night while she was lying in bed. It was 9/10. Chest pain resolved after she received medication in the ER. Currently no chest pain. She did have associated dyspnea, but no diaphoresis was reported. She reports feeling her heart racing, but no palpitations. She states that she has been under a large amount of stress recently. 2 of her sisters in the past week. One sister had an aneurysm rupture and the other sister following coronary artery bypass graft surgery. Review of Systems Constitutional: DENIES: Fever, Chills, Night Sweats Eyes: DENIES: Blurred vision, Vision loss Ears, nose, mouth, throat: DENIES: Hearing loss Respiratory: COMPLAINS OF: Shortness of breath, DENIES: Cough, Wheezing, Sputum production Cardiovascular: COMPLAINS OF: Chest pain, Dyspnea on Exertion, DENIES: Palpitations, Lower Extremity Edema Gastrointestinal: DENIES: Abdominal pain, Constipation, Diarrhea, Nausea, Vomiting Genitourinary: DENIES: Urinary frequency, Urinary incontinence, Urgency, Hematuria, Dysuria, Nocturia Musculoskeletal: DENIES: Joint pain, Muscle aches Integumentary: DENIES: Pruritus, Rash Hematologic/lymphatic: DENIES: Bruising Neurologic: DENIES: Headache Past Family Social History Past Medical History Rheumatoid arthritis Osteoarthritis Asthma Atrial fibrillation Depression Hyperlipidemia COPD GERD Hypertension Past Surgical History Cholecystectomy Left eye cataract surgery Hysterectomy Right hip replacement 2001 Reported Medications Diltiazem CD 24 HR 300 Mg Caper 300 Mg PO DAILY 30 Days Metoprolol Succinate ER 24 HR (Metoprolol Succinate) 50 Mg Tab 25 Mg PO DAILY D3 (Cholecalciferol) 2,000 Unit Cap 2,000 Units PO DAILY Ocuvite (Multiple Vitamins W/ Minerals) 1 Tab 1 Tab PO DAILY Meclizine (Meclizine HCl) 25 Mg Tab 25 Mg PO DIRECTED PRN Furosemide 40 Mg Tab 40 Mg PO DAILY Omeprazole 20 Mg Tab 20 Mg PO DAILY Lisinopril 20 Mg Tab 20 Mg PO BID Pravastatin 40 Mg Tab 40 Mg PO DAILY Eliquis (Apixaban) 5 Mg Tab 5 Mg PO BID Allergies: Coded Allergies: No Known Allergies (Verified Allergy, Unknown, 10/27/17) Family History Heart disease Social History Quit smoking 30 years ago. Denies alcohol or illicit drug use. Physical Exam Vital Signs Vital Signs Date Time Temp Pulse Resp B/P (MAP) Pulse Ox O2 Delivery O2 Flow Rate FiO2 10/27/17 14:09 95 18 115/60 (78) 100 Room Air 10/27/17 13:46 98.5 145 21 124/92 (103) 96 Room Air Physical Exam GENERAL: Elderly female in no acute distress. HEENT: Normocephalic, atraumatic. Pupils equal, round and reactive. Extraocular movements intact. No scleral icterus. No injection or drainage. Oropharynx is clear. Mucous membranes are moist. CARDIOVASCULAR: Regular rate and rhythm. No murmur noted. RESPIRATORY: Clear to auscultation. No wheezes, rales, or rhonchi. Breathing is non-labored. GASTROINTESTINAL: Abdomen soft, non-tender, nondistended. EXTREMITIES: No lower extremity edema. No calf tenderness. PSYCH: Alert and oriented x 3. Laboratory Laboratory Tests Test 10/27/17 13:56 White Blood Count 5.2 Red Blood Count 4.29 Hemoglobin 13.3 Hematocrit 39.4 Mean Corpuscular Volume 91.9 Mean Corpuscular Hemoglobin 31.1 Mean Corpuscular Hemoglobin Concent 33.8 Red Cell Distribution Width 14.6 Platelet Count 338 Mean Platelet Volume 7.1 Neutrophils (%) (Auto) 42.2 Lymphocytes (%) (Auto) 48.2 Monocytes (%) (Auto) 8.0 Eosinophils (%) (Auto) 1.1 Basophils (%) (Auto) 0.5 Neutrophils # (Auto) 2.2 Lymphocytes # (Auto) 2.5 Monocytes # (Auto) 0.4 Eosinophils # (Auto) 0.1 Basophils # (Auto) 0.0 CBC Comment DIFF FINAL Differential Comment Blood Urea Nitrogen 14 Creatinine 0.85 Random Glucose 170 Calcium Level 9.3 Sodium Level 138 Potassium Level 3.8 Chloride Level 103 Carbon Dioxide Level 26.4 Anion Gap 9 Estimat Glomerular Filtration Rate 77 Total Creatine Kinase 92 Troponin I LESS THAN 0.02 B-Type Natriuretic Peptide 90 Result Diagram: 10/27/17 1356 10/27/17 1356 Imaging Last Impressions Chest X-Ray 10/27/17 1345 Signed Impressions: Service Date/Time: October 13:58 - CONCLUSION: No acute disease. MD Yuni Brar VTE Risk Assessment Yuni VTE Risk Assessment: Mod/High Risk (score >= 2) Caprini Risk Assessment Model Point Value = 1 Point Value = 2 Point Value = 3 Point Value = 5 Age 41-60 Minor surgery BMI > 25 kg/m2 Swollen legs Varicose veins or History of unexplained or recurrent spontaneous Oral contraceptives or hormone replacement Sepsis (< 1 month) Serious lung disease, including pneumonia (< 1 month) Abnormal pulmonary function Acute myocardial infarction Congestive heart failure (< 1 month) History of inflammatory bowel disease Medical patient at bed rest Age 61-74 Arthroscopic surgery Major open surgery (> 45 min) Laparoscopic surgery (> 45 min) Malignancy Confined to bed (> 72 hours) Immobilizing plaster cast Central venous access Age >= 75 History of VTE Family history of VTE Factor V Leiden Prothrombin [id number] Lupus anticoagulant Anticardiolipin antibodies Elevated serum homocysteine Heparin-induced thrombocytopenia Other congenital or acquired thrombophilia Stroke (< 1 month) Elective arthroplasty Hip, pelvis, or leg fracture Acute spinal cord injury (< 1 month) Prophylaxis Regimen Total Risk Factor Score Risk Level Prophylaxis Regimen 0-1 Low Early ambulation 2 Moderate Order ONE of the following: *Sequential Compression Device (SCD) *Heparin 5000 units SQ BID 3-4 Higher Order ONE of the following medications: *Heparin 5000 units SQ TID *Enoxaparin/Lovenox 40 mg SQ daily (WT < 150 kg, CrCl > 30 mL/min) *Enoxaparin/Lovenox 30 mg SQ daily (WT < 150 kg, CrCl > 10-29 mL/min) *Enoxaparin/Lovenox 30 mg SQ BID (WT < 150 kg, CrCl > 30 mL/min) AND/OR *Sequential Compression Device (SCD) 5 or more Highest Order ONE of the following medications: *Heparin 5000 units SQ TID (Preferred with Epidurals) *Enoxaparin/Lovenox 40 mg SQ daily (WT < 150 kg, CrCl > 30 mL/min) *Enoxaparin/Lovenox 30 mg SQ daily (WT < 150 kg, CrCl > 10-29 mL/min) *Enoxaparin/Lovenox 30 mg SQ BID (WT < 150 kg, CrCl > 30 mL/min) AND *Sequential Compression Device (SCD) Assessment and Plan Assessment and Plan 1. Atrial fibrillation with RVR: The patient received 2 doses of IV diltiazem in the ER. Rate is not well controlled in the 70s. Rhythm is regular on exam. 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 Resume home medications including diltiazem, metoprolol, Eliquis. 2. Chest pain: Likely secondary to A. fib with RVR. Initial troponin negative. Follow serial cardiac enzymes and EKGs. Cardiology consult requested. Monitor on telemetry. Nitroglycerin sublingual as needed. Pain has resolved. 3. Hyperlipidemia: Continue statin. 4. Hypertension: Continue beta-nam, calcium channel nam, CONRAD inhibitor. 5. DVT prophylaxis: Eliquis. Fede Dunne MD Oct 27, 2017 17:25
[2017-10-27] MEDS ORDERED: NITROGLYCERIN 0.4 MG SL 25 TABS/BTL SL PRN (17:30)
[2017-10-27] MEDS ORDERED: MECLIZINE HCL 25 MG TAB PO PRN (17:30)
[2017-10-27] MEDS ORDERED: POLYETHYLENE GLYCOL PROPYLENE GLYCOL OPTH DRP D RIGHT EYE PRN (17:30)
[2017-10-27 17:31] VITALS: BP 145/65; PULSE 70; RESP 18; TEMP 97.8; O2SAT 99
[2017-10-27] MEDS ORDERED: [UNRECOGNIZED DRUG - OTHER] RIGHT EYE PRN (18:30)
--- NOTE | 2017-10-27 19:19 | MB ---
cc: Mayuri Martínez MD DATE OF CONSULT: 10/27/2017 REASON FOR CONSULTATION: Atrial fibrillation with rapid ventricular rate. HISTORY OF PRESENT ILLNESS: Ms. Araya is an 87-year-old patient of mine who does have a history of atrial fibrillation. She presented with an episode of chest discomfort and was subsequently found to be in atrial fibrillation with rapid ventricular rate. She notes that her 2 sisters passed in the last 22 days, 1 of aneurysm rupture and the other after coronary artery bypass surgery. PAST MEDICAL HISTORY: Significant for asthma, chest pain, hypertension, hyperlipidemia, old myocardial infarction from atrial fibrillation with RVR, paroxysmal atrial fibrillation with a JAIR-VASc score of 4, arthritis, shortness of breath, tortuous aorta, vertigo, COPD and GERD as well as arthritis. OUTPATIENT MEDICATIONS: Include Diltiazem CD 300 mg a day, metoprolol ER 50 mg a day, Meclizine, Lasix, lisinopril, Pravastatin, Eliquis 5 mg b.i.d. ALLERGIES: NO KNOWN DRUG ALLERGIES. FAMILY HISTORY: As above. SOCIAL HISTORY: Patient is a former smoker. REVIEW OF SYSTEMS: Except as mentioned in the HPI, all 12 systems are negative. PHYSICAL EXAMINATION: VITAL SIGNS: 95, 18, 115/60. GENERAL: She is a well-appearing female who is in no apparent distress. NECK: Her neck is free from JVD. LUNGS: Are bilaterally clear to auscultation. CARDIOVASCULAR: She has a normal S1 and S2. No murmurs, rubs or gallops were appreciated. ABDOMEN: Soft. EXTREMITIES: Free from edema. EKG: Shows atrial fibrillation with rapid ventricular rate. LABORATORY VALUES: Significant for a troponin of less than 0.02. IMPRESSION: 1. Atrial fibrillation with rapid ventricular rate: The patient did have breakthrough on 300 of Cardizem and 25 of metoprolol ER. She does report that she was compliant with her medications. As well, her rate was quite fast considering the amount of medication she is on. She did respond nicely to Cardizem. I am going to increase her Cardizem from a total of 300 mg a day to a total of 480 mg a day by changing her to the Cardizem CD 240 mg b.i.d. 2. Chest pain: Nuclear stress testing will likely be scheduled provided she remains with negative troponins. MD GUNNAR Reynolds , 06:34 PM , 07:18 PM
[2017-10-27] MEDS ORDERED: VENTAER INH (19:42)
[2017-10-27] MEDS ORDERED: MULTTAB67 PO (19:42)
[2017-10-27] MEDS ORDERED: TYLE325T PO (19:42)
[2017-10-27 20:20] VITALS: BP 163/70; PULSE 72; RESP 18; TEMP 97.7; O2SAT 98
[2017-10-27] MEDS: DILTIAZEM-CD 240 MG CAP ER PO SCH (21:21)
[2017-10-27] MEDS: LISINOPRIL 20 MG TAB PO SCH (21:22)
[2017-10-27] MEDS: SODIUM CHLORIDE 0.9% FLUSH 10 ML FLUSH IV FLUSH SCH (21:22)
[2017-10-27] MEDS: APIXABAN 5 MG TABLET PO SCH (21:22)
[2017-10-27 21:56] LABS: TROPONIN I LESS THAN 0.02 NG/ML (0.02-0.05)
[2017-10-27 23:45] VITALS: PULSE 64
[2017-10-28] VITALS: BP 130/60; PULSE 65; RESP 16; TEMP 97.6; O2SAT 97
[2017-10-28] MEDS ORDERED: MINERAL OIL 10 ML VIAL TOPICAL ONE (02:00)
[2017-10-28 04:00] VITALS: BP 149/69; PULSE 65; RESP 18; TEMP 98.2; O2SAT 97
[2017-10-28 04:51] LABS: TROPONIN I LESS THAN 0.02 NG/ML (0.02-0.05)
[2017-10-28 04:54] LABS: BICARBONATE 26.7 MEQ/L (21.0-32.0); CALCIUM 8.7 MG/DL (8.5-10.1); CREATININE 0.65 MG/DL (0.50-1.00)
--- NOTE | 2017-10-28 07:51 | PD.CARD.PN ---
Subjective Subjective Remarks Pt without complaints Objective Medications Current Medications Medications (Trade) Dose Ordered Sig/Sanjuanita Route Start Time Stop Time Status Last Admin (NS Flush) 2 ml UNSCH PRN IV FLUSH 10/27/17 16:15 (NS Flush) 2 ml BID IV FLUSH 10/27/17 21:00 10/27/17 21:22 (Nitrostat Sl) 0.4 mg Q5M PRN SL 10/27/17 17:30 (Eliquis) 5 mg BID PO 10/27/17 21:00 10/27/17 21:22 (Lasix) 40 mg DAILY PO 10/28/17 09:00 (Prinivil) 20 mg BID PO 10/27/17 21:00 10/27/17 21:22 (Antivert) 25 mg Q8HR PRN PO 10/27/17 17:30 (Toprol Xl) 25 mg DAILY PO 10/28/17 09:00 (Ocuvite) 1 tab DAILY PO 10/28/17 09:00 (Pravachol) 40 mg DAILY PO 10/28/17 09:00 (Protonix) 20 mg DAILY PO 10/28/17 09:00 (Vitamin D3) 2,000 units DAILY PO 10/28/17 09:00 Patient Own Medication PT OWN MED: SYST... UNSCH PRN RIGHT EYE 10/27/17 18:30 Future Hold (Cardizem Cd) 240 mg Q12HR PO 10/27/17 21:00 10/27/17 21:21 Vital Signs / I&O Vital Signs Date Time Temp Pulse Resp B/P (MAP) Pulse Ox O2 Delivery O2 Flow Rate FiO2 10/28/17 04:00 98.2 65 18 149/69 (95) 97 10/28/17 00:00 97.6 65 16 130/60 (83) 97 10/27/17 23:45 64 10/27/17 20:20 97.7 72 18 163/70 (101) 98 10/27/17 19:22 Room Air 10/27/17 18:15 Room Air 10/27/17 17:50 10/27/17 17:31 97.8 70 18 145/65 (91) 99 10/27/17 14:09 95 18 115/60 (78) 100 Room Air 10/27/17 13:46 98.5 145 21 124/92 (103) 96 Room Air I/O 10/27/17 10/27/17 10/27/17 10/28/17 10/28/17 10/28/17 07:00 15:00 23:00 07:00 15:00 23:00 Output Total 800 ml Balance -800 ml Output Urine Total 800 ml # Voids 1 Physical Exam GENERAL: Well developed, well nourished. No acute distress. HEENT: Jugular venous pressure is normal. CHEST: Lungs clear to auscultation bilaterally. Unlabored respiratory effort. CARDIAC: Regular rate and rhythm without S3, S4, or murmur. ABDOMEN: Soft, nontender, no hepatosplenomegaly. Bowel sounds present. EXTREMITIES: No clubbing, cyanosis, or edema. Laboratory Laboratory Tests Test 10/27/17 13:56 10/27/17 20:54 10/28/17 03:58 White Blood Count 5.2 TH/MM3 Red Blood Count 4.29 MIL/MM3 Hemoglobin 13.3 GM/DL Hematocrit 39.4 % Mean Corpuscular Volume 91.9 FL Mean Corpuscular Hemoglobin 31.1 PG Mean Corpuscular Hemoglobin Concent 33.8 % Red Cell Distribution Width 14.6 % Platelet Count 338 TH/MM3 Mean Platelet Volume 7.1 FL Neutrophils (%) (Auto) 42.2 % Lymphocytes (%) (Auto) 48.2 % Monocytes (%) (Auto) 8.0 % Eosinophils (%) (Auto) 1.1 % Basophils (%) (Auto) 0.5 % Neutrophils # (Auto) 2.2 TH/MM3 Lymphocytes # (Auto) 2.5 TH/MM3 Monocytes # (Auto) 0.4 TH/MM3 Eosinophils # (Auto) 0.1 TH/MM3 Basophils # (Auto) 0.0 TH/MM3 CBC Comment DIFF FINAL Differential Comment Blood Urea Nitrogen 14 MG/DL 14 MG/DL Creatinine 0.85 MG/DL 0.65 MG/DL Random Glucose 170 MG/DL 88 MG/DL Calcium Level 9.3 MG/DL 8.7 MG/DL Sodium Level 138 MEQ/L 142 MEQ/L Potassium Level 3.8 MEQ/L 4.4 MEQ/L Chloride Level 103 MEQ/L 110 MEQ/L Carbon Dioxide Level 26.4 MEQ/L 26.7 MEQ/L Anion Gap 9 MEQ/L 5 MEQ/L Estimat Glomerular Filtration Rate 77 ML/MIN 105 ML/MIN Total Creatine Kinase 92 U/L 92 U/L 86 U/L Troponin I LESS THAN 0.02 NG/ML LESS THAN 0.02 NG/ML LESS THAN 0.02 NG/ML B-Type Natriuretic Peptide 90 PG/ML Imaging Last 24 hours Impressions Chest X-Ray 10/27/17 8795 Signed Impressions: Service Date/Time: October 13:58 - CONCLUSION: No acute disease. Yohan Morrow MD Assessment and Plan Problem List: (1) Atrial fibrillation ICD Codes: I48.91 - Atrial fibrillation Status: Acute Plan: doing well overnight -continue with higher dose cardizem as that is what broke the AF yesterday - I am going to stop metoprolol -continue eliquis (2) Chest pain ICD Codes: R07.9 - Chest pain, unspecified Status: Acute Plan: asymptomatic -ecg and enzymes negative => nuc stress today ==ok for d/c if no ischemia (3) Chronic obstructive pulmonary disease (COPD) ICD Codes: J44.9 - Chronic obstructive pulmonary disease (COPD) Status: Acute (4) Hypertension ICD Codes: I10 - Hypertension Status: Acute (5) Hyperlipidemia ICD Codes: E78.5 - Hyperlipidemia Status: Acute Mayuri Martínez MD Oct 28, 2017 07:51
[2017-10-28 07:52] VITALS: PULSE 66
[2017-10-28 08:00] VITALS: BP 137/63; PULSE 68; RESP 18; TEMP 98.2; O2SAT 99
[2017-10-28] MEDS: APIXABAN 5 MG TABLET PO SCH (08:19)
[2017-10-28] MEDS: DILTIAZEM-CD 240 MG CAP ER PO SCH (08:19)
[2017-10-28] MEDS: LISINOPRIL 20 MG TAB PO SCH (08:19)
[2017-10-28] MEDS: SODIUM CHLORIDE 0.9% FLUSH 10 ML FLUSH IV FLUSH SCH (08:29)
[2017-10-28] MEDS ORDERED: NON-FORMULARY DRUG (Omeprazole 20 MG) PO SCH (09:00)
[2017-10-28] MEDS ORDERED: MULTIVITAMIN-OPHTHALMIC 1 TAB PO SCH (09:00)
[2017-10-28] MEDS ORDERED: PANTOPRAZOLE SOD 20 MG DELAYED RELEASE TAB PO SCH (09:00)
[2017-10-28] MEDS ORDERED: METOPROLOL SUCCINATE 25 MG EXTENDED RELEASE TAB PO SCH (09:00)
[2017-10-28] MEDS ORDERED: CHOLECALCIFEROL (VIT D3) 1000 UNIT TAB PO SCH (09:00)
[2017-10-28] MEDS ORDERED: CHOLECALCIFEROL 2000 UNIT PO SCH (09:00)
[2017-10-28] MEDS ORDERED: FUROSEMIDE 40 MG TAB PO SCH (09:00)
[2017-10-28] MEDS ORDERED: PRAVASTATIN SOD 40 MG TAB PO SCH (09:00)
--- NOTE | 2017-10-28 09:37 | HHI.PR ---
Subjective Remarks Follow up for Afib, chest pain. Patient returned from nuclear medicine after Lexiscan. Patient is doing well. No chest pain, SOB, fever, chills. Objective Vitals Vital Signs Date Time Temp Pulse Resp B/P (MAP) Pulse Ox O2 Delivery O2 Flow Rate FiO2 10/28/17 08:00 98.2 68 18 137/63 (87) 99 10/28/17 07:55 Room Air 10/28/17 07:52 66 10/28/17 04:00 98.2 65 18 149/69 (95) 97 10/28/17 00:00 97.6 65 16 130/60 (83) 97 10/27/17 23:45 64 10/27/17 20:20 97.7 72 18 163/70 (101) 98 10/27/17 19:22 Room Air 10/27/17 18:15 Room Air 10/27/17 17:50 10/27/17 17:31 97.8 70 18 145/65 (91) 99 10/27/17 14:09 95 18 115/60 (78) 100 Room Air 10/27/17 13:46 98.5 145 21 124/92 (103) 96 Room Air I/O 10/27/17 10/27/17 10/27/17 10/28/17 10/28/17 10/28/17 07:00 15:00 23:00 07:00 15:00 23:00 Output Total 800 ml Balance -800 ml Output Urine Total 800 ml # Voids 1 Result Diagram: 10/27/17 1356 10/28/17 0358 Imaging Last Impressions Myocardial Perfusion Scan Nuc Med 10/28/17 0000 Signed Impressions: Service Date/Time: Saturday, October 28, 2017 09:29 - CONCLUSION: 1. No significant reversibility to suggest ischemia. 2. Normal wall motion with ejection fraction greater than 70%%. RISK CATEGORY: Low (<1%% Annual Mortality Rate) Jorge Luis Barker MD Chest X-Ray 10/27/17 1345 Signed Impressions: Service Date/Time: October 13:58 - CONCLUSION: No acute disease. Yohan Morrow MD Objective Remarks GENERAL: SKIN: Warm and dry. HEAD: Normocephalic. EYES: No scleral icterus. No injection or drainage. NECK: Supple, trachea midline. No JVD or lymphadenopathy. CARDIOVASCULAR: Regular rate and rhythm without murmurs, gallops, or rubs. RESPIRATORY: Breath sounds equal bilaterally. No accessory muscle use. GASTROINTESTINAL: Abdomen soft, non-tender, nondistended. MUSCULOSKELETAL: No cyanosis, or edema. BACK: Nontender without obvious deformity. No CVA tenderness. Procedures Lexiscan A/P Problem List: (1) Chest pain ICD Code: R07.9 - Chest pain, unspecified Status: Acute (2) Atrial fibrillation with rapid ventricular response ICD Code: I48.91 - Unspecified atrial fibrillation (3) Hypertension ICD Code: I10 - Hypertension Status: Acute (4) Hyperlipidemia ICD Code: E78.5 - Hyperlipidemia Status: Acute Assessment and Plan Ms. Araya is an 87-year-old female who presented to the emergency department with chest pain. She was found to have atrial fibrillation with RVR as well. -Chest pain -Troponins unremarkable. Cardiology evaluated patient. Recommended Lexiscan. -If Lexiscan is negative, will likely discharge patient home per cardiology recommendations. -Atrial fibrillation with RVR -Continue diltiazem 240 mg p.o. every 12 hours. -Continue apixaban 5 mg twice daily. -Hypertension -Hyperlipidemia -Continue lisinopril 20 mg twice daily, furosemide 40 mg p.o. daily. -Continue pravastatin 40 mg daily. Full code. Apixaban. Discharge patient to home Condition on discharge: Improved Heart healthy Diet as tolerated Ad Estela activity Rx written: Cardizem CD 240mg BID STOP metoprolol. Follow-up with primary care physician within one week and Cardiology within two weeks. Angela Yanez DO Oct 28, 2017 09:37
[2017-10-28] MEDS ORDERED: REGADENOSON INJ 0.4 MG/5 ML SYR ONE (09:42)
--- NOTE | 2017-10-28 11:38 | EKG ---
Date Performed: 10/27/2017 Time Performed: 14:07:19 PTAGE: 87 years EKG: ATRIAL FIBRILLATION ABNORMAL RHYTHM ECG PREVIOUS TRACING : 10/27/2017 13.43 When compared to prior EKG, the patient is now rate control led. DOCTOR: Mayuri Martínez Interpretating Date/Time 10/28/2017 11:37:19
--- NOTE | 2017-10-28 11:38 | EKG ---
Date Performed: 10/27/2017 Time Performed: 22:52:43 PTAGE: 87 years EKG: Sinus rhythm NORMAL ECG PREVIOUS TRACING : 10/27/2017 14.07 When compared to prior EKG, patient is now in sinus rhythm. DOCTOR: Mayuri Martínez Interpretating Date/Time 10/28/2017 11:37:33
--- NOTE | 2017-10-28 12:15 | RADRPT ---
EXAM DATE/TIME: 10/28/2017 09:29 [facility] COMPARISON: No previous studies available for comparison. INDICATIONS : Mid chest pain for one day. Angina. Myocardial infarction. DOSE: 25.7 mCi Tc99m Myoview at stress. 8.7 mCi Tc99m Myoview at rest. 0.4 mg Lexiscan STRESS SYMPTOMS: Shortness of breath. EJECTION FRACTION: > 70% MEDICAL HISTORY : Chronic obstructive pulmonary disease. Hypertension. Gastroesophageal reflux disease. SURGICAL HISTORY : Hysterectomy. Cholecystectomy. Inguinal hernia repair. ENCOUNTER: Initial ACUITY: 1 day PAIN SCALE: 5/10 LOCATION: Midsternal chest TECHNIQUE: The patient underwent pharmacologic stress with infusion of prescribed dose. Continuous ECG tracing was monitored during stress. Gated SPECT imaging was performed after stress and conventional SPECT i maging was performed at rest. The examination was performed on a SPECT/CT scanner, both attenuation and non-corrected datasets were reviewed. FINDINGS: DISTRIBUTION: The maximum perfused segment at stress is in the anterior wall. PERFUSION STUDY: The pattern of perfusion at stress is within normal limits. GATED STUDY: There is intact wall motion and thickening without hypokinetic or dyskinetic segments. CONCLUSION: 1. No significant reversibility to suggest ischemia. 2. Normal wall motion with ejection fraction greater than 70%. RISK CATEGORY: Low (<1% Annual Mortality Rate) Jorge Luis Barker MD on October 28, 2017 at 12:11 Board Certified Radiologist. This report was verified electronically.
[2017-10-28] MEDS ORDERED: DILT240C44 PO (12:27)
[2017-10-28 12:38] VITALS: PULSE 71
--- NOTE | 2017-10-29 10:19 | EKG ---
Date Performed: 10/28/2017 Time Performed: 03:42:04 PTAGE: 87 years EKG: Sinus arrhythmia Normal ECG NO PREVIOUS TRACING DOCTOR: Mejia Rosario Interpretating Date/Time 10/29/2017 10:18:36
== END 2017-10-28 15:23 | disposition home or self-care (01) | DRG 310 ==
LOC: NEPE 13:30 → NEDA 15:57 → N04B 17:31
PROVIDERS: ADMIT Hospitalist; ATTEND Hospitalist
DX: I48.0 Paroxysmal atrial fibrillation (principal); Z79.02 Long term (current) use of antithrombotics/antiplatelets; J44.9 Chronic obstructive pulmonary disease, unspecified; J45.909 Unspecified asthma, uncomplicated; R07.9 Chest pain, unspecified; I10 Essential (primary) hypertension; E78.5 Hyperlipidemia, unspecified; I25.2 Old myocardial infarction; K21.9 Gastro-esophageal reflux disease without esophagitis; M19.90 Unspecified osteoarthritis, unspecified site; Z87.891 Personal history of nicotine dependence
CPT/HCPCS: 71045; 78452; 80048; 82550; 83880; 84484; 85025; 93005; 93017; 96374; 96376; A9502; J2785

== ENCOUNTER 2017-12-16 11:25 | Emergency (ER) | payer OTHER, MEDICAID ==
[~2017-12-16 11:25] MED LIST changes: +DILT240C44 PO; -DILT300C3 PO; -METO1TAB9 PO; +MULTTAB67 PO; +SYSTSOL RIGHT EYE; +TYLE325T PO; +VENTAER INH
[2017-12-16 11:39] VITALS: BP 138/62; PULSE 98; RESP 20; TEMP 97.5; O2SAT 99
--- NOTE | 2017-12-16 12:05 | RADRPT ---
EXAM DATE/TIME: 12/16/2017 11:52 [facility] COMPARISON: No previous studies available for comparison. INDICATIONS : Shortness of breath and chest pain/pressure. MEDICAL HISTORY : Chronic obstructive pulmonary disease. SURGICAL HISTORY : None. ENCOUNTER: Initial ACUITY: 2 weeks PAIN SCORE: 7/10 LOCATION: Bilateral chest FINDINGS: PA and lateral views of the chest demonstrate the lungs to be symmetrically aerated without evidence of mass, infiltrate or effusion. The cardiomediastinal contours are unremarkable. Osseous structure s are intact. CONCLUSION: No acute disease. Yohan Morrow MD on December 16, 2017 at 12:03 Board Certified Radiologist. This report was verified electronically.
[2017-12-16 13:30] VITALS: BP 180/76; PULSE 75; RESP 18; O2SAT 97; O2SAT 99
[2017-12-16] MEDS ORDERED: RESP: ALBUTEROL 2.5 MG/IPRATROPIUM 0.5 MG NEB (SCH) INH ONE (13:45)
--- NOTE | 2017-12-16 13:46 | PD ---
HPI Chief Complaint: Cardiac Complaint Time Seen by Provider: 13:24 Travel History International Travel<30 days: No Contact w/Intl Traveler<30days: No Traveled to known affect area: No History of Present Illness HPI 87-year-old female that presents to the ED for evaluation of shortness of breath with exertion but comes and goes. Patient has a significant history of atrial fibrillation, CHF as well as COPD. Per patient she has been compliant with her medications except for her albuterol nebulizer which she does not use because she does not like it. Per patient she has been having episodes of shortness of breath for the past 2 weeks that have not improved. She has not used her nebulizer but uses her Symbicort. She denies any shortness of breath currently. Per patient shortness of breath comes and goes. She denies any recent travel. She has been evaluated recently for cardiac had a negative stress test about a month ago. She has not followed with her doctor since. She denies any chest pain but she states that whenever she is because of shortness of breath she does gets chest pressure. She currently has none of this. She denies using oxygen at home. Has no allergies to medication. Other medical issues. No abdominal pain. No nausea or vomiting. PFSH Past Medical History Hx Anticoagulant Therapy: Yes (ELIQUIS) Arthritis: Yes (rheumatoid arthritis and OA) Asthma: Yes Atrial Fibrillation: Yes Autoimmune Disease: No Blood Disorders: No Anxiety: No Depression: No (recent loss of 2 sisters) Heart Rhythm Problems: Yes (Chronic atrial fibrillation) Cancer: No Cardiac Catheterization: No Cardiovascular Problems: Yes High Cholesterol: Yes Chemotherapy: No Chest Pain: Yes Congestive Heart Failure: Yes COPD: Yes Diabetes: No Diverticulitis: Yes Endocrine: No Gastrointestinal Disorders: Yes GERD: Yes Genitourinary: Yes Hepatitis: No Hiatal Hernia: Yes Heparin Induced Thrombocytopen: No Hypertension: Yes Immune Disorder: No Implanted Vascular Access Dvce: No Kidney Stones: No Musculoskeletal: Yes Neurologic: No Psychiatric: Yes Reproductive: No Respiratory: Yes Myocardial Infarction: No Radiation Therapy: No Renal Failure: No Sickle Cell Disease: No Sleep Apnea: No Thyroid Disease: No Ulcer: Yes Past Surgical History Abdominal Surgery: Yes (cholecystectomy) AICD: No Appendectomy: No Arteriovenous Shunt: No Cardiac Surgery: No Cholecystectomy: Yes Coronary Artery Bypass Graft: No Ear Surgery: No Endocrine Surgery: No Eye Surgery: Yes (Left eye cataract surgery) Genitourinary Surgery: No Gynecologic Surgery: Yes (histerectomy 1976) Hysterectomy: Yes Insulin Pump: No Joint Replacement: Yes (Right hip replacement, 2001) Neurologic Surgery: No Oral Surgery: No Pacemaker: No Thoracic Surgery: No Other Surgery: Yes Family History Family Myocardial Infarction: No Social History Alcohol Use: No Tobacco Use: No (quit 30 years ago) Substance Use: No Allergies-Medications (Allergen,Severity, Reaction): Coded Allergies: No Known Allergies (Verified Allergy, Unknown, 10/27/17) Reported Meds & Prescriptions Reported Meds & Active Scripts Active Prednisone 20 Mg Tab 20 Mg PO BID 5 Days Azithromycin 250 Mg Tab 250 Mg PO DIRECTED Take 2 tabs (500 mg) on day 1 then 1 tab daily x 4 days. Reported Multiple Vitamin 1 Tab 1 Tab PO DAILY Ventolin Hfa 18 GM Inh (Albuterol Sulfate) 90 Mcg/Act Aer 2 Puff INH Q4H PRN Tylenol (Acetaminophen) 325 Mg Tab 650 Mg PO Q4H PRN Systane Opth Drops (Polyethylene Glycol-Propylene Glycol Opth Drp) 0.4-0.3% Soln 1-2 Drop RIGHT EYE PRN PRN D3 (Cholecalciferol) 2,000 Unit Cap 2,000 Units PO DAILY Ocuvite (Multiple Vitamins W/ Minerals) 1 Tab 1 Tab PO DAILY Meclizine (Meclizine HCl) 25 Mg Tab 25 Mg PO DIRECTED PRN Furosemide 40 Mg Tab 40 Mg PO DAILY Omeprazole 20 Mg Tab 20 Mg PO DAILY Lisinopril 20 Mg Tab 20 Mg PO BID Pravastatin 40 Mg Tab 40 Mg PO DAILY Eliquis (Apixaban) 5 Mg Tab 5 Mg PO BID Review of Systems Except as stated in HPI: all other systems reviewed are Neg Physical Exam Narrative GENERAL: Well-nourished, well-developed patient in no apparent distress. SKIN: Warm and dry. HEAD: Atraumatic. Normocephalic. EYES: Pupils equal and round reactive to light and accommodation. No scleral icterus. No injection or drainage. ENT: No nasal bleeding or discharge. Mucous membranes pink and moist. TMs are clear with no sign of infection or perforation. No mastoid tenderness. Ear canals are intact bilaterally. No lymphadenopathy. Nostril mucosa is red and moist with clear mucus noted. No sinus tenderness to palpation noted. Tonsils are not enlarged or swollen. No ulvua Deviation. Tongue is midline. NECK: Trachea midline. No JVD. No meningeal signs noted CARDIOVASCULAR: Regular rate and rhythm. RESPIRATORY: No accessory muscle use. Minimal wheezing with expiration. Breath sounds equal bilaterally. GASTROINTESTINAL: Abdomen soft, non-tender, nondistended. Hepatic and splenic margins not palpable. MUSCULOSKELETAL: Extremities without clubbing, cyanosis, or edema. No obvious deformities. NEUROLOGICAL: Awake and alert. No obvious cranial nerve deficits. Motor grossly within normal limits. Five out of 5 muscle strength in the arms and legs. Normal speech. PSYCHIATRIC: Appropriate mood and affect; insight and judgment normal. Data Data Last Documented VS Vital Signs Date Time Temp Pulse Resp B/P (MAP) Pulse Ox O2 Delivery O2 Flow Rate FiO2 12/16/17 17:31 73 18 133/63 (86) 98 Room Air 12/16/17 11:39 97.5 Orders Orders Electrocardiogram (12/16/17 11:41) Complete Blood Count With Diff (12/16/17 11:41) Basic Metabolic Panel (Bmp) (12/16/17 11:41) Ckmb (Isoenzyme) Profile (12/16/17 11:41) Troponin I (12/16/17 11:41) Iv Access Insert/Monitor (12/16/17 11:41) Ecg Monitoring (12/16/17 11:41) Oxygen Administration (12/16/17 11:41) Oximetry (12/16/17 11:41) Act Partial Throm Time (Ptt) (12/16/17 11:41) Prothrombin Time / Inr (Pt) (12/16/17 11:41) D-Dimer (12/16/17 11:41) Chest, Pa & Lat (12/16/17 ) B-Type Natriuretic Peptide (12/16/17 11:41) Hepatic Functional Panel (12/16/17 13:36) Lipase (12/16/17 13:36) Albuterol-Ipratropium Neb (Duoneb Neb) (12/16/17 13:45) Vascular Access Team Consult/P PRN (12/16/17 14:14) Vascular Poc Ultrasound (12/16/17 ) CKMB (12/16/17 13:47) CKMB% (12/16/17 13:47) Clonidine (Catapres) (12/16/17 16:15) Ct Pulmonary Angiogram (12/16/17 ) Iohexol 350 Inj (Omnipaque 350 Inj) (12/16/17 16:54) Methylprednisolone So Succ Inj (Solumedr (12/16/17 17:30) Azithromycin Inj (Zithromax Inj) (12/16/17 17:30) Ed Discharge Order (12/16/17 18:23) Labs Laboratory Tests Test 12/16/17 13:47 12/16/17 15:14 Blood Urea Nitrogen 18 MG/DL Creatinine 0.90 MG/DL Random Glucose 88 MG/DL Calcium Level 8.4 MG/DL Sodium Level 142 MEQ/L Potassium Level 4.2 MEQ/L Chloride Level 109 MEQ/L Carbon Dioxide Level 26.5 MEQ/L Anion Gap 7 MEQ/L Estimat Glomerular Filtration Rate 72 ML/MIN Total Bilirubin 0.5 MG/DL Direct Bilirubin 0.1 MG/DL Indirect Bilirubin 0.4 MG/DL Aspartate Amino Transf (AST/SGOT) 45 U/L Alanine Aminotransferase (ALT/SGPT) 59 U/L Alkaline Phosphatase 58 U/L Total Creatine Kinase 138 U/L Creatine Kinase MB 2.1 NG/ML Troponin I 0.05 NG/ML Total Protein 6.8 GM/DL Albumin 2.7 GM/DL Lipase 101 U/L White Blood Count 8.1 TH/MM3 Red Blood Count 4.02 MIL/MM3 Hemoglobin 12.4 GM/DL Hematocrit 37.3 % Mean Corpuscular Volume 92.8 FL Mean Corpuscular Hemoglobin 30.9 PG Mean Corpuscular Hemoglobin Concent 33.3 % Red Cell Distribution Width 14.9 % Platelet Count 330 TH/MM3 Mean Platelet Volume 7.0 FL Neutrophils (%) (Auto) 61.7 % Lymphocytes (%) (Auto) 28.8 % Monocytes (%) (Auto) 8.1 % Eosinophils (%) (Auto) 0.5 % Basophils (%) (Auto) 0.9 % Neutrophils # (Auto) 5.0 TH/MM3 Lymphocytes # (Auto) 2.3 TH/MM3 Monocytes # (Auto) 0.7 TH/MM3 Eosinophils # (Auto) 0.0 TH/MM3 Basophils # (Auto) 0.1 TH/MM3 CBC Comment DIFF FINAL Differential Comment Prothrombin Time 11.2 SEC Prothromb Time International Ratio 1.1 RATIO Activated Partial Thromboplast Time 20.4 SEC D-Dimer Quantitative (PE/DVT) 0.67 MG/L FEU B-Type Natriuretic Peptide 117 PG/ML MDM Medical Decision Making Medical Screen Exam Complete: Yes Emergency Medical Condition: Yes Medical Record Reviewed: Yes Interpretation(s) CBC & BMP Diagram 12/16/17 13:47 Calcium Level 8.4 L 12/16/17 15:14 Last Impressions Chest X-Ray 12/16/17 0000 Signed Impressions: Service Date/Time: Saturday, December 16, 2017 11:52 - CONCLUSION: No acute disease. Yohan Morrow MD CT Angiography 12/16/17 0000 Signed Impressions: Service Date/Time: Saturday, December 16, 2017 16:39 - CONCLUSION: Negative. No infiltrate or central emboli. Mannie Emery MD FACR gege-dimmer slightly elevated troponin of 0.05 CK MB WNL coags WNL Differential Diagnosis COPD exacerbation versus A. fib versus chest pain versus chest pain adult versus ACS versus chronic COPD versus normal exam versus bronchitis Narrative Course 87-year-old female that presents to the ED for evaluation of shortness of breath. Patient was properly examined and was found to have signs and symptoms consistent appears to be likely COPD. He does have multiple comorbidities. We will do labs and imaging. Labs and imaging did show slightly elevated troponin as well as d-dimer. Did review the patient's medical records and she has had positive troponin in the past about the same level. She has no chest pain. She does have a stress test less than a month ago and this was found to be negative for acute disease. This was discussed with my attending Dr. Powers agrees that this is likely chronic for her. D-dimer was positive and CT pulmonary exam was ordered. This was negative for acute disease. Patient was reassessed and still feels improved. She was given 1 breathing treatment here. She will given Solu Medrol and azithromycin. Given prescriptions for prednisone and azithromycin. Told to follow with pulmonology as her PCP. See ED if worsening symptoms. My attending Dr. Powers was made aware of all findings and evaluated the patient herself and agrees the patient can be discharged. Diagnosis Primary Impression: Chronic obstructive pulmonary disease (COPD) Qualified Codes: J44.1 - Chronic obstructive pulmonary disease with (acute) exacerbation Patient Instructions: General Instructions Additional Instructions: Take medications as prescribed. Follow with your doctor. See ED worsening symptoms. Med/Other Pt SpecificInfo: Prescription(s) given Scripts Prednisone (Prednisone) 20 Mg Tab 20 MG PO BID for 5 Days, #10 TAB 0 Refills Prov: PowersTiffani arango 12/16/17 Azithromycin (Azithromycin) 250 Mg Tab 250 MG PO DIRECTED for Infection, #6 TAB 0 Refills Take 2 tabs (500 mg) on day 1 then 1 tab daily x 4 days. Prov: Tiffani Powers DO 12/16/17 Disposition: 01 DISCHARGE HOME Condition: Stable Reginald Robledo Dec 16, 2017 13:46
[2017-12-16 14:23] LABS: BICARBONATE 26.5 MEQ/L (21.0-32.0); BLOOD UREA NITROGEN 18 MG/DL (7-18); CALCIUM 8.4 MG/DL (8.5-10.1); CHLORIDE 109 MEQ/L (98-107); GLOMERULAR FILTRATION RATE 72 ML/MIN (>89); GLUCOSE,RANDOM 88 MG/DL (74-106); SODIUM (NA) 142 MEQ/L (136-145)
[2017-12-16 14:27] LABS: TROPONIN I 0.05 NG/ML (0.02-0.05)
[2017-12-16 15:36] LABS: BASOPHIL # 0.1 TH/MM3 (0-0.2); BASOPHIL % 0.9 % (0.0-2.0); EOSINOPHIL % 0.5 % (0.0-4.0); HEMATOCRIT 37.3 % (35.0-46.0); HEMOGLOBIN 12.4 GM/DL (11.6-15.3); LYMPH % 28.8 % (9.0-44.0); LYMPHOCYTE # 2.3 TH/MM3 (1.0-4.8); MEAN CELL VOLUME 92.8 FL (80.0-100.0); MEAN CORPUSCULAR HEMOGLOBIN 30.9 PG (27.0-34.0); MEAN CORPUSCULAR HGB CONC 33.3 % (32.0-36.0); MONO % 8.1 % (0.0-8.0); MONOCYTE # 0.7 TH/MM3 (0-0.9); NEUT % 61.7 % (16.0-70.0); PLATELET COUNT 330 TH/MM3 (150-450); RED BLOOD COUNT 4.02 MIL/MM3 (4.00-5.30); RED CELL DISTRIBUTION WIDTH 14.9 % (11.6-17.2); WHITE BLOOD COUNT 8.1 TH/MM3 (4.0-11.0)
[2017-12-16 15:57] LABS: INTERNATIONAL NORMALIZED RATIO 1.1 RATIO; PROTHROMBIN TIME - PATIENT 11.2 SEC (9.8-11.6)
[2017-12-16 15:58] LABS: D-DIMER 0.67 MG/L FEU (0.00-0.50)
[2017-12-16 16:04] VITALS: BP 200/79; PULSE 70; RESP 18; O2SAT 100
[2017-12-16 16:15] LABS: ALBUMIN 2.7 GM/DL (3.4-5.0); DIRECT BILIRUBIN ADULT 0.1 MG/DL (0.0-0.2)
[2017-12-16] MEDS ORDERED: cloNIDine HCL 0.1 MG TAB PO ONE (16:15)
[2017-12-16 16:16] LABS: INDIRECT BILIRUBIN 0.4 MG/DL (0.0-0.8); TOTAL BILIRUBIN ADULT 0.5 MG/DL (0.2-1.0)
[2017-12-16 16:26] LABS: TOTAL PROTEIN 6.8 GM/DL (6.4-8.2)
[2017-12-16 16:50] VITALS: BP 180/76; PULSE 84; RESP 18; O2SAT 98
[2017-12-16] MEDS ORDERED: IOHEXOL 350 MG/ML 10 ML VIAL (for RAD DIAG) IVCONTRAST ONE (16:54)
--- NOTE | 2017-12-16 16:57 | RADRPT ---
EXAM DATE/TIME: 12/16/2017 16:39 [facility] COMPARISON: No previous studies available for comparison. INDICATIONS : SOB, chest tightness. IV CONTRAST: 75 cc Omnipaque 350 (iohexol) IV RADIATION DOSE: 13.38 CTDIvol (mGy) MEDICAL HISTORY : Cardiovascular disease. Congestive heart failure. Hypertension.A Fib, H hernia, reflux,RA,OA SURGICAL HISTORY : Hysterectomy. Cholecystectomy. ENCOUNTER: Initial ACUITY: 2 weeks PAIN SCALE: 4/10 LOCATION: chest TECHNIQUE: Volumetric scanning of the chest was performed using a pulmonary embolism protocol MIP images were re constructed. Using automated exposure control and adjustment of the mA and/or kV according to patien t size, radiation dose was kept as low as reasonably achievable to obtain optimal diagnostic quality images. DICOM format image data is available electronically for review and comparison. Follow-up recommendations for detected pulmonary nodules are based at a minimum on nodule size and pa tient risk factors according to Fleischner Society Guidelines. FINDINGS: PULMONARY ARTERIES: No filling defects are seen in the pulmonary arteries through the segmental level. LUNGS: There is no consolidation or pneumothorax . No concerning pulmonary nodule is visualized. PLEURAE: There is no pleural thickening or pleural effusion. MEDIASTINUM: There is good visualization of the great vessels of the middle mediastinum. No evidence of mediastin al or hilar adenopathy/mass. MUSCULOSKELETAL: Within normal limits for patient age. MISCELLANEOUS: The visualized upper abdominal organs demonstrate no acute abnormality. CONCLUSION: Negative. No infiltrate or central emboli. Mannie Emery MD FACR on December 16, 2017 at 16:54 Board Certified Radiologist. This report was verified electronically.
[2017-12-16] MEDS ORDERED: AZITHROMYCIN INJ 500 MG in SODIUM CHLOR 0.9% 250 ML INJ 250 ML IV ONE (17:30)
[2017-12-16] MEDS ORDERED: methylPREDNISolone SOD SUCC 125 MG/2 ML VIAL IV PUSH ONE (17:30)
[2017-12-16 17:31] VITALS: BP 133/63; PULSE 73; RESP 18; O2SAT 98
[2017-12-16] MEDS ORDERED: AZIT250T3 PO (17:34)
[2017-12-16] MEDS ORDERED: PRED20 PO (17:34)
--- NOTE | 2017-12-16 17:40 | PD ---
Physical Exam Narrative I, Dr. Powers, have reviewed the advance practice practitioner's documentation and am in agreement, met with the patient face to face, made the diagnosis, and the medical decision making was done by me. *My assessment and Findings: COPD exacerbation vs. Pneumonia vs. ACS 87yo F with sob for 2 weeks. Pt is very well appearing and denies any chest pain. Pt is saturating at 100% on RA. Had some end expiratory wheezing when my PA examined her but no wheezing on my exam. Labs reviewed, no leukocytosis. H/H normal. Troponin negative at 0.05. Mildly elevated AST/ALT. Pt has no abdominal pain. BNP mildly elevated at 117. D-dimer elevated so CT angio performed. CXR negative. CT angio negative. No infiltrate or central emboli. Pt ambulated in ED without sob. Pt was given methylprednisolone, duobnebs for mild COPD exacerbation. BP improved with clonidine. Return precautions given. Data Data Last Documented VS Vital Signs Date Time Temp Pulse Resp B/P (MAP) Pulse Ox O2 Delivery O2 Flow Rate FiO2 12/16/17 17:31 73 18 133/63 (86) 98 Room Air 12/16/17 11:39 97.5 Orders Orders Electrocardiogram (12/16/17 11:41) Complete Blood Count With Diff (12/16/17 11:41) Basic Metabolic Panel (Bmp) (12/16/17 11:41) Ckmb (Isoenzyme) Profile (12/16/17 11:41) Troponin I (12/16/17 11:41) Iv Access Insert/Monitor (12/16/17 11:41) Ecg Monitoring (12/16/17 11:41) Oxygen Administration (12/16/17 11:41) Oximetry (12/16/17 11:41) Act Partial Throm Time (Ptt) (12/16/17 11:41) Prothrombin Time / Inr (Pt) (12/16/17 11:41) D-Dimer (12/16/17 11:41) Chest, Pa & Lat (12/16/17 ) B-Type Natriuretic Peptide (12/16/17 11:41) Hepatic Functional Panel (12/16/17 13:36) Lipase (12/16/17 13:36) Albuterol-Ipratropium Neb (Duoneb Neb) (12/16/17 13:45) Vascular Access Team Consult/P PRN (12/16/17 14:14) Vascular Poc Ultrasound (12/16/17 ) CKMB (12/16/17 13:47) CKMB% (12/16/17 13:47) Clonidine (Catapres) (12/16/17 16:15) Ct Pulmonary Angiogram (12/16/17 ) Iohexol 350 Inj (Omnipaque 350 Inj) (12/16/17 16:54) Methylprednisolone So Succ Inj (Solumedr (12/16/17 17:30) Azithromycin Inj (Zithromax Inj) (12/16/17 17:30) Ed Discharge Order (12/16/17 18:23) Labs Laboratory Tests Test 12/16/17 13:47 12/16/17 15:14 Blood Urea Nitrogen 18 MG/DL Creatinine 0.90 MG/DL Random Glucose 88 MG/DL Calcium Level 8.4 MG/DL Sodium Level 142 MEQ/L Potassium Level 4.2 MEQ/L Chloride Level 109 MEQ/L Carbon Dioxide Level 26.5 MEQ/L Anion Gap 7 MEQ/L Estimat Glomerular Filtration Rate 72 ML/MIN Total Bilirubin 0.5 MG/DL Direct Bilirubin 0.1 MG/DL Indirect Bilirubin 0.4 MG/DL Aspartate Amino Transf (AST/SGOT) 45 U/L Alanine Aminotransferase (ALT/SGPT) 59 U/L Alkaline Phosphatase 58 U/L Total Creatine Kinase 138 U/L Creatine Kinase MB 2.1 NG/ML Troponin I 0.05 NG/ML Total Protein 6.8 GM/DL Albumin 2.7 GM/DL Lipase 101 U/L White Blood Count 8.1 TH/MM3 Red Blood Count 4.02 MIL/MM3 Hemoglobin 12.4 GM/DL Hematocrit 37.3 % Mean Corpuscular Volume 92.8 FL Mean Corpuscular Hemoglobin 30.9 PG Mean Corpuscular Hemoglobin Concent 33.3 % Red Cell Distribution Width 14.9 % Platelet Count 330 TH/MM3 Mean Platelet Volume 7.0 FL Neutrophils (%) (Auto) 61.7 % Lymphocytes (%) (Auto) 28.8 % Monocytes (%) (Auto) 8.1 % Eosinophils (%) (Auto) 0.5 % Basophils (%) (Auto) 0.9 % Neutrophils # (Auto) 5.0 TH/MM3 Lymphocytes # (Auto) 2.3 TH/MM3 Monocytes # (Auto) 0.7 TH/MM3 Eosinophils # (Auto) 0.0 TH/MM3 Basophils # (Auto) 0.1 TH/MM3 CBC Comment DIFF FINAL Differential Comment Prothrombin Time 11.2 SEC Prothromb Time International Ratio 1.1 RATIO Activated Partial Thromboplast Time 20.4 SEC D-Dimer Quantitative (PE/DVT) 0.67 MG/L FEU B-Type Natriuretic Peptide 117 PG/ML MDM Supervised Visit with TIFFANIE: Yes Interpretation(s) EKG: NSR 80bpm. Normal axis. No ST segment elevation or depression. Scripts Prednisone (Prednisone) 20 Mg Tab 20 MG PO BID for 5 Days, #10 TAB 0 Refills Prov: Tiffani Powers DO 12/16/17 Azithromycin (Azithromycin) 250 Mg Tab 250 MG PO DIRECTED for Infection, #6 TAB 0 Refills Take 2 tabs (500 mg) on day 1 then 1 tab daily x 4 days. Prov: Tiffani Powers DO 12/16/17 Tiffani Powers DO Dec 16, 2017 17:40
--- NOTE | 2017-12-17 18:13 | EKG ---
Date Performed: 12/16/2017 Time Performed: 12:00:26 PTAGE: 87 years EKG: Sinus rhythm WITH PREMATURE ATRIAL BEATS Compared to previous tracing, premature atrial beats are new BORDERLINE ECG PREVIOUS TRACING : 10/28/2017 03.42 DOCTOR: Marvin Clark Interpretating Date/Time 12/17/2017 18:11:42
== END 2017-12-16 19:44 | disposition home or self-care (01) ==
LOC: NEPE 11:25
DX: J44.1 Chronic obstructive pulmonary disease with (acute) exacerbation (principal); I11.0 Hypertensive heart disease with heart failure; I50.9 Heart failure, unspecified; I48.2 Chronic atrial fibrillation; E78.00 Pure hypercholesterolemia, unspecified; K21.9 Gastro-esophageal reflux disease without esophagitis; Z79.01 Long term (current) use of anticoagulants; Z79.899 Other long term (current) drug therapy; Z87.891 Personal history of nicotine dependence
CPT/HCPCS: 71046; 71275; 80048; 80076; 82550; 82552; 83690; 83880; 84484; 85025; 85379; 85610; 85730; 93005; 94664; 99283; J0456; J2930; J7050; Q9967